=== PATIENT | female | born 1980 | race Caucasian/White ===

== ENCOUNTER 2022-10-01 14:26 | Outpatient (REF) | payer OTHER, SELFPAY ==
[2022-10-01 16:30] LABS: Appearance Urine Clear; Color Urine Yellow; Glucose Urine UA Negative (Negative); Leukocyte Esterase Urine Small (1+) (Negative); Nitrite Urine Negative (Negative); Specific Gravity - Urine 1.025 (1.005-1.025); UMIC TRIGGER UACC YES; Urine Blood Large (3+) (Negative); Urine Ketones Trace mg/dL (Negative); Urine Protein Trace mg/dL (Neg-Trace)
[2022-10-01 16:45] LABS: Bacteria Urine None Seen (None Seen); Hyaline Casts Urine 0-2 /LPF (0-2); RBC Urine >20 /HPF (0-2); UACC Culture Trigger YES
[2022-10-01 17:43] LABS: TSH reflex Free T4 < 0.01 uIU/mL (0.32-4.0)
[2022-10-01 18:42] LABS: Free T4 (Free Thyroxine) 1.47 ng/dL (0.71-1.85)
[2022-10-13 15:14] LABS: Gliadin Deamidated IgA Ab <1.0 U/mL; Gliadin Deamidated IgG Ab <1.0 U/mL; Transglutaminase Ab IgG <1.0 U/mL; Transglutaminase IgA <1.0 U/mL
== END 2022-10-01 14:27 | disposition home or self-care (01) ==
LOC: HO.LAB 14:26
PROVIDERS: PCP Internal Medicine; Visit Provider Nurse Practitioner
DX: R11.2 Nausea with vomiting, unspecified (principal)
CPT/HCPCS: 36415; 81001; 84439; 84443; 86003; 86258; 86364; 87086; 87147; 99202

== ENCOUNTER 2022-10-02 12:39 | Outpatient (REF) | payer OTHER, SELFPAY | END 2022-10-02 12:40 | disposition home or self-care (01) | LOC: HO.LNP 12:39 | PROVIDERS: Internal Medicine; Visit Provider Internal Medicine | DX: R11.2 Nausea with vomiting, unspecified (principal) | CPT/HCPCS: 87338 ==

== ENCOUNTER 2022-10-09 10:19 | Outpatient (REF) | payer OTHER, SELFPAY ==
--- NOTE | ~2022-10-09 | US_ITS ---
EXAMINATION: US ABDOMEN COMPLETE CLINICAL INFORMATION: Nausea with vomiting, unspecified. COMPARISON: None available. TECHNIQUE: Real-time imaging of the abdominal viscera. Technically limited study secondary to body habitus. FINDINGS: PANCREAS: Limited visualization. ABDOMINAL AORTA: The proximal, mid, and distal segments are normal in caliber. INFERIOR VENA CAVA: Visualized portions are normal. LIVER: The liver is normal in size. The liver contour is normal. There is diffuse increased liver parenchymal echogenicity, consistent with hepatic steatosis. No focal hepatic lesion. There is no intrahepatic biliary duct dilatation seen. GALLBLADDER: The gallbladder is physiologically distended without evidence of stones, sludge, polyps, wall thickening or pericholecystic fluid. COMMON BILE DUCT: Normal in caliber measuring 0.3 cm in diameter. RIGHT KIDNEY: No hydronephrosis. No renal calculi or focal parenchymal lesions. The kidney measures 12.7 cm in maximum dimension. LEFT KIDNEY: No hydronephrosis. No renal calculi or focal parenchymal lesions. The kidney measures 11.4 cm in maximum dimension. SPLEEN: The spleen measures 11.8 cm in maximum dimension. FREE FLUID: None. US/US abdomen complete IMPRESSION: Hepatic steatosis.
== END 2022-10-09 10:20 | disposition home or self-care (01) ==
LOC: HO.HMGCX 10:19
PROVIDERS: PCP Internal Medicine; Visit Provider Nurse Practitioner
DX: R11.2 Nausea with vomiting, unspecified (principal); K58.0 Irritable bowel syndrome with diarrhea
CPT/HCPCS: 76700

== ENCOUNTER 2022-10-23 13:37 | Outpatient (AMB) | payer OTHER, SELFPAY ==
--- NOTE | 2022-10-23 13:41 | A.OFFVIS_ITS ---
Intake Vital Signs 10/23/22 13:42 Height 5 ft 6 in Weight 278 lb 5 oz BMI 44.9 BP 121/57 L Blood Pressure Location Lt brachial Position Sitting Intake Visit Reasons: 3 week follow up labs Intake Note: Patient presents to in office visit today in 3 weeks follow up of labs. CC: Pt continues to have nausea and this week states she only vomited once. She report she was having abdominal pain yesterday when bending down. Reports that this morning she woke up and went to have a BM because she was feeling rectal pressure but it took about half an hour to finally have a BM. Lens Examiner Required: No Accompanied by: Self / Same As Patient Allergies nirmatrelvir [From Paxlovid (EUA)] Allergy (Verified 10/23/22 13:43) Unknown ritonavir [From Paxlovid (EUA)] Allergy (Verified 10/23/22 13:43) Unknown adhesive Adverse Reaction (Verified 10/23/22 13:43) Rash Erythromycin Allergy (Uncoded 09/05/22 16:03) Rash Latex Allergy (Uncoded 09/05/22 16:03) Rash Medication List - Last Reconciled 10/23/22 by CHOCO Teran calcium carbonate-simethicone 500-20 mg tabs PO cetirizine 10 mg PO DAILY CPAP (CPAP Machine/Device) As directed ibuprofen 600 mg PO Q8H PRN levothyroxine (Synthroid) 150 mcg PO DAILY omeprazole 20 mg PO BEDTIME ondansetron 4 mg PO Q8H PRN psyllium seed (sugar) (Metamucil (sugar) oral powder) 1 tbsp PO BID sennosides (Senna Laxative) 17.2 mg (2 x 8.6 mg) PO BEDTIME HPI 3 week follow up labs HPI Details Assessment & Plan (1) Nausea and vomiting: ?Code(s): R11.2 - Nausea with vomiting, unspecified ?Plan: Barium swallow 06/2022 [facility] IMPRESSION Small sliding type 1 hiatal hernia. Primary care record seems to indicate the order gastric emptying study but the results of this study was not forwarded to us. The problems started at age 19 when she gained 60 lbs in 3 mos and she was dx'ed with thyroid disease. She was put on synthroid and they had trouble regulating her thyroid. During her first she went into hyperthyroid, then she lost weight and she felt well. During her second (13 yrs ago) she feels that everything has been awry. She then lost 60 lbs 5-6 years ago and her insurance made her be on generic thyroid medicines and she again gained weight. THen she had COVID 2 years ago and rashaun past May and she had a lot of dypepsia and N/V. She has had am nausea since the first COVID episode (she relates that she also had a bad rxn to paxlovid). She relays that she is frustrated that many doctors tell her she is fat and has to lose weight and they are not considering her hormonal difficulties. She vomits almost every morning if she does not put something in her stomach. She will have pains in her LUQ, LLQ and periumbilically that are squeezing that can last from a few minutes to all day intermittently.? This is not r/t her N/V. Her baseline for her bowels was CIC around her menses, she uses benefiber and citrucel but this has been slightly better since COVID. The only diarrhea is right before he menses. About every 3 mos she will be very ill with N/V, body aches, PEREZ etc during her peroid. She says she has PDD and occular migraines. She says she did the GES but she was the never told the results.? It was performed at [facility]. She has had GERD for a long time, many years, and she has always been on either TUMS and omeprazole. Her GERD has been worse recently. She feels this has worsened with losing weight.? She has FHX of GB disease, her mother and sister had choles. The only new medication was Ajovy injection for migraines but then she developed a rash and had to stop it. She also has migraines that coincide with her menses. She has a lot of atypical presentations in her migraines that i nclude occular and numbness that goes up her arms. She has been told in the past she may have abdominal migraines. Her neurologist just retired and she can not get an appt with the new one until January. Her COKE BURNER has told her that the sx are all related to hormone changes. She has never had an EGD. She did have a colonoscopy at age 19 and hated drinking the stuff. Otherwise she tolerated it well. She says there have been diabetes concerns in the past adn I have not been tested for this in a long time. She also complains that I have never had a thorough thyroid work up, saying I see a different doctor every time I go to the [facility]. She complains of random joint swelling but always on my left side. She also c/o heel spurs, knee problems and eye problems on the left side of her body. Her mother and sister have bad GERD and her mother has to have her throat stretched. Her maternal grandmother and paternal grandfather had stomach cancer. She does not think she had an H pylori test. Her dtr has apple allergies. She has not been tested for food allergies recently. She says her biggest annoyance if nausea and brain fog. 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 She wants to teach.? I admits that she is extremely disorganized historian and has trouble really teasing out what is specific to my area of practice. She eats very little at lunch and supper is a slightly larger meal, but if she eats too much it will hurt in her epigastrum, and she has had episodes where she will feel like she would vomit. She equates how she feels to when she was with nausea alternating with food cravings. She recently craved a cheeseburger with Am[place]em island dressing. Did explain her that my role will be to determine if the GI system is contributing to her symptomatology.? Certainly many of her symptoms are disjointed and would point more towards a hormonal/metabolic/neurologic or even psychogenic point of origin.? Since she feels like her GERD is worsened with weight loss and she has a strong family history of gallbladder disease I think an ultrasound is prudent.? An EGD certainly is prudent given her symptoms and her strong family history of stomach cancer along with an H pylori study.? I think some food allergy testing could also shed some light on her symptoms.? I doubt that this has anything to do with her pancreas since she has had normal pancreatic enzymes, also it does not appear that she has a cholestatic picture in her liver function tests that were obtained in June. ROV 3 weeks, get GES study, ordering US, EGD, RAST, panel, Celiac panel. She will be gone most of November. (2) GERD (gastroesophageal reflux disease): ?Comment: Barium swallow 06/2022 [facility] IMPRESSION Small sliding type 1 hiatal hernia. ?Code(s): K21.9 - Gastro-esophageal reflux disease without esophagitis (3) Morbid obesity: ?Code(s): E66.01 - Morbid (severe) obesity due to excess calories (4) Irritable bowel syndrome with diarrhea: ?Code(s): K58.0 - Irritable bowel syndrome with diarrhea (5) Urinary frequency: ?Code(s): R35.0 - Frequency of micturition ? ? ? Orders: Orders Rast Allergen Today K58.0 - Irritable bowel syndrome wit h diarrhea, R11.2 - Nausea with vomi ting, unspecified ? TSH reflex Free T4 Today K58.0 - Irritable bowel syndrome wit h diarrhea, R11.2 - Nausea with vomi ting, unspecified ? Gliadin Ab Panel Today K58.0 - Irritable bowel syndrome wit h diarrhea, R11.2 - Nausea with vomi ting, unspecified ? Transglutaminase I gA Today K58.0 - Irritable bowel syndrome wit h diarrhea, R11.2 - Nausea with vomi ting, unspecified ? Transglutaminase A b IgG Today K58.0 - Irritable bowel syndrome wit h diarrhea, R11.2 - Nausea with vomi ting, unspecified ? EGD with Mcginnis - G I Use Only Today K58.0 - Irritable bowel syndrome wit h diarrhea, R11.2 - Nausea with vomi ting, unspecified ? US abdomen complet e Today K58.0 - Irritable bowel syndrome wit h diarrhea, R11.2 - Nausea with vomi ting, unspecified ? H pylori Ag Stool Today R11.2 - Nausea wit h vomiting, unspec ified ? UA CC w/rflx Micro + Cult Today R35.0 - Frequency of micturition ? LABS: Laboratory Tests 10/01/22 10/01/22 10/02/22 16:14 16:14 10:00 TSH < 0.01 L Free T4 1.47 Stool H. pylori Ag NEGATIVE Tiss Transglutamin IgG <1.0 Tiss Transglutamin IgA <1.0 Anti-Gliadin IgG A b <1.0 Gliadin (Deamidat) IgA <1.0 RAST SHOWS MILD ALLERGY TO COWS MILK ULTRASOUND OF THE ABDOMEN 10/16/22 FINDINGS: PANCREAS: Limited visualization. ABDOMINAL AORTA: The proximal, mid, and distal segments are normal in caliber. INFERIOR VENA CAVA: Visualized portions are normal. LIVER: The liver is normal in size. The liver contour is normal. There is diffuse increased liver parenchymal echogenicity, consistent with hepatic steatosis.? No focal hepatic lesion. There is no intrahepatic biliary duct dilatation seen. GALLBLADDER: The gallbladder is physiologically distended without evidence of stones, sludge, polyps, wall thickening or pericholecystic fluid. COMMON BILE DUCT: Normal in caliber measuring 0.3 cm in diameter. RIGHT KIDNEY: No hydronephrosis. No renal calculi or focal parenchymal lesions. The kidney measures 12.7 cm in maximum dimension. LEFT KIDNEY: No hydronephrosis. No renal calculi or focal parenchymal lesions. The kidney measures 11.4 cm in maximum dimension. SPLEEN: The spleen measures 11.8 cm in maximum dimension. FREE FLUID: None. US/US abdomen complete IMPRESSION: Hepatic steatosis. CORRESPONDENCE Medication Orders cephalexin 500 mg PO BID 14 c aps 0RF 7 days New On 10/08/22 @ 09:19 Harley Fuentes Wrote To [facility] added, Rast results scanned today into PT's chart. On 10/08/22 @ 08:43 Haleigh Novoa Wrote To Harley Fuentes 1. please call pt and find out her pharmacy as she has a UTI and I neecd to send abx 2. Please get the results of rast and post to chart. On 10/02/22 @ 10:53 Haleigh Novoa Wrote To [facility] Patient having her menses at the time of the urine sample 10/01/22-[address]: Taylor Parnell ORDERED: [facility] w Micros QUERIES: Source: Urine, Clean Catch Test Result Flag Reference Site Ur Color Yellow Ur Appear Clear PH 6.0 5.0-9.0 Ur Glu Negative Negative mg/dL Urine Blood Large (3+) H Negative Spec Hurley Ur 1.025 1.005-1.025 Urine Protein Trace Neg-Trace mg/dL Urine Ketones Trace Negative mg/dL Ur Nitrite Negative Negative Ur Aroldo Esterase Small (1+) H Negative Ur RBC >20 H 0-2 /HPF Ur WBC 11-20 H 0-5 /HPF Ur Squam Epi 3-5 0-2 /HPF Ur Bact None Seen None Seen Ur Hyaline Picker Box Operator 0-2 0-2 /LPF Urine Culture Final 10/03/22-1153 Report Result > 100,000 cfu/ml Mixed bacterial sophia characteristic of urogenital contamination. Organism 1 Strep agalactiae (Grp B) Quant < 10,000 cfu/mL Susc N/A Susceptibility not routinely performed on this isolate. EGD BIOPSY TODAY'S VISIT She received the keflex and took all but the last 3 days r/t work and sleep schedule. She DID feel better in terms of her stomach I was actually hungry again. She still has urinary frequency, will retest. She is now having CIC and has had one episode of severe pain above the umbilicus, at times lower but this is more of a bloated feeling. It radiates around her ribs and to her low back. She uses mag citrate (quite harsh), and has used only fibers and metamucil - radiological technologist with pill laxatives. Will start a trial of senna. She has a lot of gas, never been counselled about things like simethicone, probiotic or digestive enzymes. Going forward we can consider treating for bacterial overgrowth syndrome or even adding Creon to the mix depending on how she responds once we get her bowels moving more normally. She remains concerned given her family history of severe gallbladder disease so despite the negative ultrasound I will order a HIDA scan to try to tease out this as a contributing or non contributing factor. Return office visit in 2 weeks. [facility] Medical History (Updated 10/23/22 @ 14:13 by CHOCO Teran) History of endometrial biopsy Surgical History H/O colonoscopy H/O hernia repair History of section History of tubal ligation Social History (Updated 10/01/22 @ 14:52 by SUSANNAH Conklin) Alcohol intake: current Alcohol intake frequency: holidays/special occasions only Patient Tobacco Use Status: Never used Tobacco Review of Systems Const Denies fatigue, Denies fever(s), Denies night sweats, Reports poor appetite and Denies weight loss Eyes Details: glasses Reports requires corrective lenses ENT Reports Normal hearing present, Denies dental pain, Denies dysphagia, Denies hearing loss, Denies mouth pain, Denies odynophagia, Denies throat swelling, Denies tongue swelling and Reports other (Dentition adequate) Card Reports no additional complaints Resp Reports no additional complaints GI Denies abdominal pain, Denies melena, Reports bloating, Denies hematochezia, Reports constipation, Reports GI cramping, Denies dysphagia, Denies excessive flatus, Denies early satiety, Reports heartburn, Reports diarrhea, Reports nausea, Denies odynophagia, Denies vomiting and Denies hematemesis Details: Urinary frequency Musc Reports back pain Skin/Breast Denies pruritus, Denies lesions, Denies rash and Denies jaundice Neuro Reports Normal hearing present and Denies Abnormal speech present Endo Denies fatigue Aller/Immun Denies throat swelling and Denies tongue swelling Physical Exam Vital Signs: Last Vital Signs BP 121/57 L 10/23/22 13:42 BMI result Body Mass Index 44.9 Const General: cooperative, no acute distress, well developed and well groomed Nutritional Appearance: well nourished and obese Orientation/consciousness: oriented to person, oriented to place and oriented to time Limitations: No language barrier HEENT Head: Yes normocephalic and Yes atraumatic Eyes General: appearance normal, both eyes and all related structures Pupils: Equal, round and reactive pupils present Neck Neck: Yes normal visual inspection and Yes no lymphadenopathy Thyroid: Thyroid normal Resp Effort & Inspection: normal respiratory effort and able to speak in complete sentences Auscultation: clear to auscultation bilaterally Cardio Rate: regular rate Rhythm: regular rhythm Heart sounds: Normal, physiologic split S2 sound present Peripheral pulses: radial pulses present and posterior tibial pulses present GI Inspection: No distended, No Abdominal panniculus present and Yes obesity Palpation (GI): Soft to palpation, nontender, no guarding, not rigid and No hepatosplenomegaly present Percussion: Yes normal to percussion Auscultation: normal bowel sounds Rectal Exam - Female: deferred Skin General skin exam: no rashes or lesions noted, turgor normal, skin not dry, no jaundice, No spider nevi and no striae Rashes: no rashes Nails: normal Neuro General: oriented to person, oriented to place and oriented to time Cranial nerves: Yes Equal, round and reactive pupils present and Yes Normal hearing present Speech: No Abnormal speech present Extrem General: Yes normal to inspection, No clubbing, No cyanosis and No edema Psych Appearance: grossly normal and well kempt Mental Status: mental status grossly normal Speech and movement: Normal speech and movement present Affect: normal affect Attitude: cooperative Thought process: Normal thought process present and not confabulating Thought content: Normal thought content present Insight: Limited insight present (Psych) Judgement: Limited judgement present (Psych) Results Reviewed Results Reviewed: 10/01/22 10/01/22 10/02/22 16:14 16:14 10:00 TSH < 0.01 L Free T4 1.47 Stool H. pylori Ag NEGATIVE Tiss Transglutamin IgG <1.0 Tiss Transglutamin IgA <1.0 Anti-Gliadin IgG Ab <1.0 Gliadin (Deamidat) IgA <1.0 RAST SHOWS MILD ALLERGY TO COWS MILK ULTRASOUND OF THE ABDOMEN 10/16/22 FINDINGS: PANCREAS: Limited visualization. ABDOMINAL AORTA: The proximal, mid, and distal segments are normal in caliber. INFERIOR VENA CAVA: Visualized portions are normal. LIVER: The liver is normal in size. The liver contour is normal. There is diffuse increased liver parenchymal echogenicity, consistent with hepatic steatosis.? No focal hepatic lesion. There is no intrahepatic biliary duct dilatation seen. GALLBLADDER: The gallbladder is physiologically distended without evidence of stones, sludge, polyps, wall thickening or pericholecystic fluid. COMMON BILE DUCT: Normal in caliber measuring 0.3 cm in diameter. RIGHT KIDNEY: No hydronephrosis. No renal calculi or focal parenchymal lesions. The kidney measures 12.7 cm in maximum dimension. LEFT KIDNEY: No hydronephrosis. No renal calculi or focal parenchymal lesions. The kidney measures 11.4 cm in maximum dimension. SPLEEN: The spleen measures 11.8 cm in maximum dimension. FREE FLUID: None. US/US abdomen complete IMPRESSION: Hepatic steatosis. CORRESPONDENCE Medication Orders cephalexin 500 mg PO BID 14 caps 0RF 7 days New On 10/08/22 @ 09:19 Harley Fuentes Wrote To [facility] added, Rast results scanned today into PT's chart. On 10/08/22 @ 08:43 Haleigh Novoa Wrote To Harley Fuentes 1. please call pt and find out her pharmacy as she has a UTI and I neecd to send abx 2. Please get the results of rast and post to chart. On 10/02/22 @ 10:53 Haleigh Novoa Wrote To [facility] Patient having her menses at the time of the urine sample 10/01/22-[address]: Taylor Parnell ORDERED: [facility] w Micros QUERIES: Source: Urine, Clean Catch Test Result Flag Reference Site Ur Color Yellow Ur Appear Clear PH 6.0 5.0-9.0 Ur Glu Negative Negative mg/dL Urine Blood Large (3+) H Negative Spec Hurley Ur 1.025 1.005-1.025 Urine Protein Trace Neg-Trace mg/dL Urine Ketones Trace Negative mg/dL Ur Nitrite Negative Negative Ur Aroldo Esterase Small (1+) H Negative Ur RBC >20 H 0-2 /HPF Ur WBC 11-20 H 0-5 /HPF Ur Squam Epi 3-5 0-2 /HPF Ur Bact None Seen None Seen Ur Hyaline Picker Box Operator 0-2 0-2 /LPF Urine Culture Final 10/03/22-1153 Report Result > 100,000 cfu/ml Mixed bacterial sophia characteristic of urogenital contamination. Organism 1 Strep agalactiae (Grp B) Quant < 10,000 cfu/mL Susc N/A Susceptibility not routinely performed on this isolate. Assessment & Plan Assessment & Plan (1) Irritable bowel syndrome with both constipation and diarrhea: Code(s): K58.2 - Mixed irritable bowel syndrome Plan: She received the keflex and took all but the last 3 days r/t work and sleep schedule. She DID feel better in terms of her stomach I was actually hungry again. She still has urinary frequency, will retest. She is now having CIC and has had one episode of severe pain above the umbilicus, at times lower but this is more of a bloated feeling. It radiates around her ribs and to her low back. She uses mag citrate (quite harsh), and has used only fibers and metamucil - radiological technologist with pill laxatives. Will start a trial of senna. She has a lot of gas, never been counselled about things like simethicone, probiotic or digestive enzymes. Going forward we can consider treating for bacterial overgrowth syndrome or even adding Creon to the mix depending on how she responds once we get her bowels moving more normally. She remains concerned given her family history of severe gallbladder disease so despite the negative ultrasound I will order a HIDA scan to try to tease out this as a contributing or non contributing factor. Return office visit in 2 weeks. (2) UTI (urinary tract infection): Code(s): N39.0 - Urinary tract infection, site not specified (3) GERD (gastroesophageal reflux disease): Comment: Barium swallow 06/2022 [facility] IMPRESSION Small sliding type 1 hiatal hernia. Code(s): K21.9 - Gastro-esophageal reflux disease without esophagitis (4) Nausea and vomiting: Code(s): R11.2 - Nausea with vomiting, unspecified Orders: Orders NM hepatobiliary w pharm Today R11.2 - Nausea with vomiting, unspecified UA CC w/rflx Micro + Cult Today N39.0 - Urinary tract infection, site not specified Medications: New sennosides (Senna Laxative) 17.2 mg (2 x 8.6 mg) PO BEDTIME 60 tabs 6RF K58.2 - Mixed irritable bowel syndrome simethicone after meals 180 mg PO .tidac 30 days 90 caps 3RF Coding Level of Care Code Est Pt Level 4 (64018) Diagnoses Irritable bowel syndrome with both constipation and diarrhea K58.2 UTI (urinary tract infection) N39.0 GERD (gastroesophageal reflux disease) K21.9 Nausea and vomiting R11.2
[2022-10-23 13:42] VITALS: BP 121/57; BMI 44.9
== END 2022-10-23 14:26 | disposition home or self-care (01) ==
PROVIDERS: PCP Internal Medicine; Visit Provider Nurse Practitioner
DX: K58.2 Mixed irritable bowel syndrome (principal); N39.0 Urinary tract infection, site not specified; K21.9 Gastro-esophageal reflux disease without esophagitis; R11.2 Nausea with vomiting, unspecified
CPT/HCPCS: 99214

== ENCOUNTER 2022-10-23 13:37 | Outpatient (REF) | payer OTHER, SELFPAY ==
[2022-10-23 17:04] LABS: Appearance Urine Cloudy; Color Urine Dark Yellow; Glucose Urine UA Negative (Negative); Leukocyte Esterase Urine Negative (Negative); Nitrite Urine Negative (Negative); PH 5.5 (5.0-9.0); Specific Gravity - Urine >= 1.030 (1.005-1.025); Urine Blood Negative (Negative); Urine Ketones Trace mg/dL (Negative); Urine Protein Trace mg/dL (Neg-Trace)
== END 2022-10-23 13:38 | disposition home or self-care (01) ==
LOC: HO.LAB 13:37
PROVIDERS: PCP Internal Medicine; Visit Provider Nurse Practitioner
DX: N39.0 Urinary tract infection, site not specified (principal); K58.2 Mixed irritable bowel syndrome; K21.9 Gastro-esophageal reflux disease without esophagitis; R11.2 Nausea with vomiting, unspecified
CPT/HCPCS: 81003; 99212

== ENCOUNTER 2022-11-07 12:16 | Outpatient (AMB) | payer OTHER, SELFPAY ==
--- NOTE | 2022-11-07 12:18 | MHC.OFFVIS ---
Intake Vital Signs 11/07/22 12:27 Height 5 ft 6 in Weight 276 lb 14.409 oz BMI 44.7 BP 131/61 Blood Pressure Location Lt brachial Position Sitting Pulse 79 Intake Visit Reasons: 3 week follow up Intake Note: Britt presents in office as a est.patient for a 3week f/u for f/u PT CC: pt reports having GERD, bloating pt denies any other GI Issues Fertilizer Applicator Required: No Accompanied by: Self / Same As Patient Allergies nirmatrelvir [From Paxlovid (EUA)] Allergy (Verified 11/07/22 12:29) Unknown ritonavir [From Paxlovid (EUA)] Allergy (Verified 11/07/22 12:29) Unknown adhesive Adverse Reaction (Verified 11/07/22 12:29) Rash Erythromycin Allergy (Uncoded 11/07/22 12:29) Rash Latex Allergy (Uncoded 11/07/22 12:29) Rash HPI 3 week follow up HPI Details Assessment & Plan (1) Irritable bowel syndrome with both constipation and diarrhea: ?Code(s): K58.2 - Mixed irritable bowel syndrome ?Plan: She received the keflex and took all but the last 3 days r/t work and sleep schedule. She DID feel better in terms of her stomach I was actually hungry again. She still has urinary frequency, will retest. She is now having CIC and has had one episode of severe pain above the umbilicus, at times lower but this is more of a bloated feeling. It radiates around her ribs and to her low back. 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 Will start a trial of senna. She has a lot of gas, never been counselled about things like simethicone, probiotic or digestive enzymes.? Going forward we can consider treating for bacterial overgrowth syndrome or even adding Creon to the mix depending on how she responds once we get her bowels moving more normally. She remains concerned given her family history of severe gallbladder disease so despite the negative ultrasound I will order a HIDA scan to try to tease out this as a contributing or non contributing factor. Return office visit in 2 weeks. (2) UTI (urinary tract infection): ?Code(s): N39.0 - Urinary tract infection, site not specified (3) GERD (gastroesophageal reflux disease): ?Comment: Barium swallow 06/2022 [facility] IMPRESSION Small sliding type 1 hiatal hernia. ?Code(s): K21.9 - Gastro-esophageal reflux disease without esophagitis (4) Nausea and vomiting: ?Code(s): R11.2 - Nausea with vomiting, unspecified ? ? ? Orders: Orders NM hepatobiliary w pharm Today R11.2 - Nausea wit h vomiting, unspec ified ? UA CC w/rflx Micro + Cult Today N39.0 - Urinary tr act infection, sit e not specified ? Medications: New sennosides (Senna Laxative) 17.2 mg (2 x 8.6 m g) PO BEDTIME 60 t abs 6RF K58.2 - Mixed irri table bowel syndro me ? simethicone ?? aft er meals 180 mg? PO .tidac 30 days 90 caps 3R F ? LABS: 10/01/22-[address]: Jana Galan se ORDERED: [facility] w Micros QUERIES: Sourc e: Urine, Clean Ca tch Test Result Flag Referen ce Sit e Ur Color Yellow Ur Appear Cl ear PH 6.0 5.0-9.0 Ur G adin Negativ e Negative mg/dL Urine Blood Large (3+) H Negative Spec Gra vity Ur 1.025 1.005-1.025 Urine Prot ein Trace Ne g-Trace mg/dL Urine Ketone s Trace Nega tive mg/dL Ur Nitrite Negative Negati ve Ur Aroldo Esterase Sm all (1+) H Negative Ur RBC > 20 H 0-2 /HPF Ur WBC 11-2 0 H 0-5 /HPF Ur S rasheeda Epi 3-5 0-2 /HPF Ur Quentin t None Seen None Seen Ur Hyali ne Optician Apprentice 0-2 0-2 /LPF 10/03/22-1153 Report Result > 100,000 cfu/ml Mixed bacterial sophia characteristic of urogenital contamination. Organism 1 Strep agalactiae (Grp B) Quant < 10,000 cfu/mL Susc N/A Susceptibility not routinely performed on this isolate. 10/23/22 Collection Derek e: 1446 Source: Urin e, Clean Catch Test Result Flag Referen ce Sit e Ur Color Saw k Yellow Ur Appear Cl oudy PH 5.5 5.0-9.0 Ur G adin Negativ e Negative mg/dL Urine Blood Negative Negative Spec Gra vity Ur >= 1.030 H 1.005-1.025 Urine Prot ein Trace Ne g-Trace mg/dL Urine Ketone s Trace Nega tive mg/dL Ur Nitrite Negative Negati ve Ur Aroldo Esterase N egative HIDA SCAN Not yet obtained EGD scheduled for 12/16/2022 was with Ras which I cancelled. TODAY'S VISIT Her bowels have been moving well with the senna, but she has to take it in the morning because she takes her levothyroxine at bedtime. She had to move the levothyroxine r/t nausea when she took it in the am. When she takes the senna, along with the simethicone, she will have worsening GERD and nausea. Clearly, this not the best medicine to promote a normal lifestyle for her. Her BM's have been formed and large, only 1 episode diarrhea. (? if cic more dominant). I will start a trial of LInzess 72mcg as this is intended to be used in the morning and will more clearly address some of the complaint she has had of cramping and pain associated with her irritable bowel. She also had severe pain in right colon in 2 isolated incidents, she thought it may be gas but was not. She fell asleep on the toilet. She continues to have a lot of gas. Again, we may need to consider treating for small-bowel bacterial overgrowth or adding Creon going forward depending on her response to promoting good normal bowel motility. She also was started on herpes medication that may be increasing the nausea. She also has pain in the inner labia, hurts wit urination, ? herpers vs marian. Will treat with monistat cream and if not resolving refer to ADMISSIONS CLINICIAN. I did just tx her with keflex for strep in urine, so this could be a causative reason for a vaginal yeast infection. Return office visit when she is back from her trip. She is going to visit family members out of state. [facility] Medical History History of endometrial biopsy Surgical History H/O colonoscopy H/O hernia repair History of section History of tubal ligation Social History Alcohol intake: current Alcohol intake frequency: holidays/special occasions only Patient Tobacco Use Status: Never used Tobacco Review of Systems Const Denies fatigue, Denies fever(s), Denies night sweats, Denies poor appetite and Denies weight loss Eyes Details: glasses Reports requires corrective lenses ENT Reports Normal hearing present, Denies dental pain, Denies dysphagia, Denies hearing loss, Denies mouth pain, Denies odynophagia, Denies throat swelling, Denies tongue swelling and Reports other (Dentition adequate) Card Reports no additional complaints Resp Reports no additional complaints GI Reports abdominal pain, Denies melena, Reports bloating, Denies hematochezia, Reports constipation, Denies GI cramping, Denies dysphagia, Denies excessive flatus, Denies early satiety, Reports heartburn, Denies diarrhea, Reports nausea, Denies odynophagia, Denies vomiting and Denies hematemesis Reports vaginal discharge Skin/Breast Denies pruritus, Denies lesions, Denies rash and Denies jaundice Neuro Reports Normal hearing present and Denies Abnormal speech present Endo Denies fatigue Aller/Immun Denies throat swelling and Denies tongue swelling Physical Exam Vital Signs: Last Vital Signs Pulse 79 11/07/22 12:27 BP 131/61 11/07/22 12:27 BMI result Body Mass Index 44.7 Const General: cooperative, no acute distress, well developed, tired appearing and well groomed Nutritional Appearance: well nourished and obese morbidly obese Orientation/consciousness: oriented to person, oriented to place and oriented to time Limitations: No language barrier HEENT Head: Yes normocephalic and Yes atraumatic Eyes General: appearance normal, both eyes and all related structures Pupils: Equal, round and reactive pupils present Neck Neck: Yes normal visual inspection and Yes no lymphadenopathy Thyroid: Thyroid normal Resp Effort & Inspection: normal respiratory effort and able to speak in complete sentences Auscultation: clear to auscultation bilaterally Cardio Rate: regular rate Rhythm: regular rhythm Heart sounds: Normal, physiologic split S2 sound present Peripheral pulses: radial pulses present and posterior tibial pulses present GI Inspection: No distended, Yes Abdominal panniculus present and Yes obesity Palpation (GI): Soft to palpation, nontender, no guarding, not rigid, No hepatosplenomegaly present and Hepatosplenomegaly present Percussion: Yes normal to percussion Auscultation: normal bowel sounds Rectal Exam - Female: deferred Skin General skin exam: no rashes or lesions noted, turgor normal, skin not dry, no jaundice, No spider nevi and no striae Rashes: no rashes Nails: normal Neuro General: oriented to person, oriented to place and oriented to time Cranial nerves: Yes Equal, round and reactive pupils present and Yes Normal hearing present Speech: No Abnormal speech present Extrem General: Yes normal to inspection, No clubbing, No cyanosis and No edema Psych Appearance: grossly normal and well kempt Mental Status: mental status grossly normal Speech and movement: Normal speech and movement present Affect: normal affect Attitude: cooperative Thought process: Normal thought process present and not confabulating Thought content: Normal thought content present Insight: Limited insight present (Psych) Judgement: Limited judgement present (Psych) Results Reviewed Results Reviewed: 10/01/22-[address]: Taylor Parnell ORDERED: [facility] w Micros QUERIES: Source: Urine, Clean Catch Test Result Flag Reference Site Ur Color Yellow Ur Appear Clear PH 6.0 5.0-9.0 Ur Glu Negative Negative mg/dL Urine Blood Large (3+) H Negative Spec [place] Ur 1.025 1.005-1.025 Urine Protein Trace Neg-Trace mg/dL Urine Ketones Trace Negative mg/dL Ur Nitrite Negative Negative Ur Aroldo Esterase Small (1+) H Negative Ur RBC >20 H 0-2 /HPF Ur WBC 11-20 H 0-5 /HPF Ur Squam Epi 3-5 0-2 /HPF Ur Bact None Seen None Seen Ur Hyaline Optician Apprentice 0-2 0-2 /LPF 10/03/22-1153 Report Result > 100,000 cfu/ml Mixed bacterial sophia characteristic of urogenital contamination. Organism 1 Strep agalactiae (Grp B) Quant < 10,000 cfu/mL [facility] [place] Susceptibility not routinely performed on this isolate. 10/23/22 Collection Time: 1446 Source: Urine, Clean Catch Test Result Flag Reference Site Ur Color Dark Yellow Ur Appear Cloudy PH 5.5 5.0-9.0 Ur Glu Negative Negative mg/dL Urine Blood Negative Negative Spec [place] Ur >= 1.030 H 1.005-1.025 Urine Protein Trace Neg-Trace mg/dL Urine Ketones Trace Negative mg/dL Ur Nitrite Negative Negative Ur Aroldo Esterase Negative Assessment & Plan Assessment & Plan (1) Chronic idiopathic constipation: Code(s): K59.04 - Chronic idiopathic constipation Plan: HIDA SCAN Not yet obtained EGD scheduled for 12/16/2022 was with Mcginnis which I cancelled. TODAY'S VISIT Her bowels have been moving well with the senna, but she has to take it in the morning because she takes her levothyroxine at bedtime. She had to move the levothyroxine r/t nausea when she took it in the am. When she takes the senna, along with the simethicone, she will have worsening GERD and nausea. Clearly, this not the best medicine to promote a normal lifestyle for her. Her BM's have been formed and large, only 1 episode diarrhea. (? if cic more dominant). I will start a trial of LInzess 72mcg as this is intended to be used in the morning and will more clearly address some of the complaint she has had of cramping and pain associated with her irritable bowel. She also had severe pain in right colon in 2 isolated incidents, she thought it may be gas but was not. She fell asleep on the toilet. She continues to have a lot of gas. Again, we may need to consider treating for small-bowel bacterial overgrowth or adding Creon going forward depending on her response to promoting good normal bowel motility. She also was started on herpes medication that may be increasing the nausea. She also has pain in the inner labia, hurts wit urination, ? herpers vs marian. Will treat with monistat cream and if not resolving refer to ADMISSIONS CLINICIAN. I did just tx her with keflex for strep in urine, so this could be a causative reason for a vaginal yeast infection. Return office visit when she is back from her trip. She is going to visit family members out of state. (2) GERD (gastroesophageal reflux disease): Comment: Barium swallow 06/2022 [facility] IMPRESSION Small sliding type 1 hiatal hernia. Code(s): K21.9 - Gastro-esophageal reflux disease without esophagitis (3) Vaginal marina: Code(s): B37.31 - Acute candidiasis of vulva and vagina Medications: New linaclotide (Linzess) 72 mcg PO QAM 30 caps 6RF K59.04 - Chronic idiopathic constipation famotidine (Pepcid) 40 mg PO BEDTIME 30 tabs 3RF K21.9 - Gastro-esophageal reflux disease without esophagitis miconazole nitrate 2% (Monistat 7) 1 appful vaginal BEDTIME 7 days 45 grams 0RF B37.31 - Acute candidiasis of vulva and vagina Discontinued sennosides (Senna Laxative) Discontinued Reason: Doctor's Order 17.2 mg (2 x 8.6 mg) PO BEDTIME 60 tabs 6RF K58.2 - Mixed irritable bowel syndrome Coding Level of Care Code Est Pt Level 3 (93484) Diagnoses Chronic idiopathic constipation K59.04 GERD (gastroesophageal reflux disease) K21.9 Vaginal marian B37.31
[2022-11-07 12:27] VITALS: BP 131/61; PULSE 79; BMI 44.7
== END 2022-11-07 13:06 | disposition home or self-care (01) ==
PROVIDERS: PCP Internal Medicine; Visit Provider Nurse Practitioner
DX: K59.04 Chronic idiopathic constipation (principal); K21.9 Gastro-esophageal reflux disease without esophagitis; B37.31 Acute candidiasis of vulva and vagina
CPT/HCPCS: 99213

== ENCOUNTER → 2022-11-07 12:16 | Outpatient (BNVA) | payer OTHER, SELFPAY | PROVIDERS: PCP Internal Medicine; Visit Provider Nurse Practitioner | DX: K59.04 Chronic idiopathic constipation (principal); K21.9 Gastro-esophageal reflux disease without esophagitis; B37.31 Acute candidiasis of vulva and vagina | CPT/HCPCS: 99212 ==

== ENCOUNTER → 2022-12-11 07:50 | Outpatient (REF) | payer OTHER, SELFPAY ==
--- NOTE | ~2022-12-11 | NM_ITS ---
EXAMINATION: BILIARY TRACT IMAGING STUDY WITH CCK CLINICAL INFORMATION: Nausea with vomiting, unspecified.. COMPARISON: Abdominal ultrasound done on 10/09/2022.. TECHNIQUE: Serial gamma scintillation camera images were obtained over the abdomen for a total observation period of 60 minutes following the intravenous administration of 5 mCi Tc-99m mebrofenin. The radiotracer was injected through right antecubital superficial vein without complications. FINDINGS: There is good concentration of activity in the liver by 5 minutes post injection. Biliary activity is visualized by 5 minutes. The gallbladder is well visualized by 15 minutes. Small bowel is well visualized by 65 minutes. At 60 minutes post radiopharmaceutical injection, a 30-minute infusion of 2.5 micrograms Sincalide was then begun and an additional 30 minutes of images were obtained. There is good emptying of the gallbladder. By the end of the study there is good clearance of activity from the liver and visualization of diffuse small bowel activity. The calculated gallbladder ejection fraction is 89% (normal gallbladder ejection fraction is greater than 35%). NM/NM hepatobiliary w pharm IMPRESSION: Visualization of the gallbladder is evidence of a patent cystic duct and strong evidence against the diagnosis of acute cholecystitis. The common bile duct is patent. Gallbladder emptying and ejection fraction are normal. Liver function appears normal.
== END ==
LOC: HO.NUCMED 07:50
PROVIDERS: PCP Internal Medicine; Visit Provider Nurse Practitioner
DX: R11.2 Nausea with vomiting, unspecified (principal)
CPT/HCPCS: 78227; A9537; J2805

== ENCOUNTER 2022-12-16 08:50 | Day surgery (SDC) | payer OTHER, SELFPAY ==
[2022-12-12 12:16] VITALS: BMI 44.7
--- NOTE | 2022-12-15 09:21 | HO.ANESPROP2 ---
Documented by User: Rosetta Weiss NP 12/15/22 09:21 HPI - Anesthesia Eval Consult details Narrative: 42yo F for Upper Endoscopy PMFSH Active Problems Active Problems: All Active Problems (Updated 11/07/22 @ 13:00 by CHOCO Teran) Vaginal marian (Acute) Chronic idiopathic constipation (Acute) Irritable bowel syndrome with both constipation and diarrhea (Acute) UTI (urinary tract infection) (Acute) PMDD (premenstrual dysphoric disorder) (Acute) Microscopic hematuria (Acute) Urinary frequency (Acute) Nausea and vomiting (Acute) Fibromyalgia (Acute) Insomnia (Acute) Depression with anxiety (Acute) GERD (gastroesophageal reflux disease) (Acute) Glaucoma (Acute) Migraines (Acute) Hypothyroid (Acute) Elsy's thyroiditis (Acute) Morbid obesity (Acute) Past Medical History Medical History GERD (gastroesophageal reflux disease) Hypothyroid History of endometrial biopsy Surgical History Surgical History H/O colonoscopy H/O hernia repair History of tubal ligation History of section Social History Social History Alcohol intake: current Alcohol intake frequency: holidays/special occasions only Patient Tobacco Use Status: Never used Tobacco Meds Allergies Allergy/AdvReac Type Severity Reaction Status Date / Time nirmatrelvir Allergy Unknown Verified 11/07/22 12:29 [From Paxlovid (EUA)] ritonavir Allergy Unknown Verified 11/07/22 12:29 [From Paxlovid (EUA)] adhesive AdvReac Rash Verified 11/07/22 12:29 Erythromycin Allergy Rash Uncoded 11/07/22 12:29 Latex Allergy Rash Uncoded 11/07/22 12:29 Home Medications Medication Instructions Recorded Confirmed Last Taken Type CPAP (CPAP Machine/Device) 10/01/22 10/23/22 Unknown History calcium carbonate 500 tab PO 10/01/22 10/23/22 Unknown History mg-simethicone 20 mg chewable tablet cetirizine 10 mg tablet 10 mg PO DAILY 10/01/22 10/23/22 Unknown History ibuprofen 600 mg tablet 600 mg PO Q8H PRN 10/01/22 10/23/22 Unknown History omeprazole 20 mg capsule,delayed 20 mg PO BEDTIME 10/01/22 10/23/22 Unknown History release ondansetron 4 mg disintegrating 4 mg PO Q8H PRN 10/01/22 10/23/22 Unknown History tablet psyllium seed (sugar) oral powder 1 tbsp PO BID 10/23/22 10/23/22 Unknown History (Metamucil (sugar) oral powder) levothyroxine 125 mcg tablet 125 mcg PO DAILY 12/16/22 12/16/22 Unknown History (Synthroid) Exam Exam Date and Time: December 15, 2022920 Height,Weight and Vital Signs: Height 5 ft 6 in Weight 125.588 kg Assessment and Plan Assessment Anesthesia Assessment: Chart Reviewed Documented by User: Latisha Harris MD 12/16/22 09:48 PMF Active Problems Active Problems: All Active Problems (Updated 12/16/22 @ 08:57 by Latisha Harris MD) Vaginal marian (Acute) Chronic idiopathic constipation (Acute) Irritable bowel syndrome with both constipation and diarrhea (Acute) UTI (urinary tract infection) (Acute) PMDD (premenstrual dysphoric disorder) (Acute) Microscopic hematuria (Acute) Urinary frequency (Acute) Nausea and vomiting (Acute) Fibromyalgia (Acute) Insomnia (Acute) Depression with anxiety (Acute) GERD (gastroesophageal reflux disease) (Acute) Glaucoma (Acute) Migraines (Acute) Hypothyroid (Acute) Elsy's thyroiditis (Acute) Morbid obesity (Acute) SVEN. Uses CPAP machine Abnormal eKG on monitor-h/o palpitations. Stress test in the past( in her 30s). Does not recall anything said about results of tests or any therapy instituted Past Medical History Medical History GERD (gastroesophageal reflux disease) Hypothyroid History of endometrial biopsy Family History Family history of problems with anesthesia: No Surgical History Surgical History H/O colonoscopy H/O hernia repair History of tubal ligation History of section History of Problems with Anesthesia: No Social History Social History Alcohol intake: current Alcohol intake frequency: holidays/special occasions only Patient Tobacco Use Status: Never used Tobacco Meds Allergies Allergy/AdvReac Type Severity Reaction Status Date / Time nirmatrelvir Allergy Unknown Verified 11/07/22 12:29 [From Paxlovid (EUA)] ritonavir Allergy Unknown Verified 11/07/22 12:29 [From Paxlovid (EUA)] adhesive AdvReac Rash Verified 11/07/22 12:29 Erythromycin Allergy Rash Uncoded 11/07/22 12:29 Latex Allergy Rash Uncoded 11/07/22 12:29 Home Medications Medication Instructions Recorded Confirmed Last Taken Type CPAP (CPAP Machine/Device) 10/01/22 10/23/22 Unknown History calcium carbonate 500 tab PO 10/01/22 10/23/22 Unknown History mg-simethicone 20 mg chewable tablet cetirizine 10 mg tablet 10 mg PO DAILY 10/01/22 10/23/22 Unknown History ibuprofen 600 mg tablet 600 mg PO Q8H PRN 10/01/22 10/23/22 Unknown History omeprazole 20 mg capsule,delayed 20 mg PO BEDTIME 10/01/22 10/23/22 Unknown History release ondansetron 4 mg disintegrating 4 mg PO Q8H PRN 10/01/22 10/23/22 Unknown History tablet psyllium seed (sugar) oral powder 1 tbsp PO BID 10/23/22 10/23/22 Unknown History (Metamucil (sugar) oral powder) levothyroxine 125 mcg tablet 125 mcg PO DAILY 12/16/22 12/16/22 Unknown History (Synthroid) Exam Height,Weight and Vital Signs: Height 5 ft 6 in Weight 125.588 kg Vital Signs Temp Pulse Resp BP Pulse Ox O2 Del Method 12/16/22 09:27 96.8 F 74 18 111/51 L 96 Room Air Narrative Narrative: 12/16/22: 12 lead EKG- NSR 82. Possible LAE. RBBB Airway Mallampati Class: II TM Dist: >3cm Neck ROM: Full Loose/Missing/Broken Teeth: No (Retainer behind lower teeth. Denies broken, loose, missing teeth) Heart: RRR Lungs: CTAB Assessment and Plan Assessment Anesthesia Assessment: Anesthesia Plan Discussed Final Anesthetic Review Family History of Problems with Anesthesia: No History of Problems with Anesthesia: No NPO: Yes ASA Class: III Final Preanesthetic Review: No Changes in Pt Med Stat, Meds/Allgs Chart Reviewed, Consent Obtained/Reviewed and Anes Risks/Benef Reviewed Patient Risk: Intermediate Procedure Risk: Low Assessment/Block/Sedation in SS: Assess/Block/Sedation-SS Anesthetic Plan Anesthetic Plan: MAC: Disposition: Standard PACU
--- NOTE | 2022-12-16 | ECG_ITS ---
Test Reason : preop palps bbb Blood Pressure : / mmHG Vent. Rate : 082 BPM Atrial Rate : 082 BPM P-R Int : 140 ms QRS Dur : 130 ms QT Int : 380 ms P-R-T Axes : 027 -02 014 degrees QTc Int : 443 ms Normal sinus rhythm Possible Left atrial enlargement Right bundle branch block Abnormal ECG No previous ECGs available Referred By: Latisha Harris Electronically Signed By:MCKENZIE ALVA
[2022-12-16 09:03] VITALS: BMI 44.4
[2022-12-16 09:27] VITALS: BP 111/51; PULSE 74; RESP 18; TEMP 36; O2SAT 96
--- NOTE | 2022-12-16 09:42 | P.HPSUR_ITS ---
Pre-Procedural Eval Section A Date of Service: 12/16/22 Section B Chief Complaint: GERD, Nausea with vomiting, unspecified Details of Present Illness: epigastric pain and fullness Relevant Family History (Specify if Yes): No Relevant Social History: None Present Medications: see Short Stay Collaborative assessment Medical History: Significant History (GERD (gastroesophageal reflux disease) Hypothyroid History of endometrial biopsy) History of Previous Operations: Relevant previous surgery/procedure and date(s) (H/O colonoscopy H/O hernia repair History of tubal ligation History of section) Allergies: Allergies Allergy/AdvReac Type Severity Reaction Status Date / Time nirmatrelvir Allergy Unknown Verified 11/07/22 12:29 [From Paxlovid (EUA)] ritonavir Allergy Unknown Verified 11/07/22 12:29 [From Paxlovid (EUA)] adhesive AdvReac Rash Verified 11/07/22 12:29 Erythromycin Allergy Rash Uncoded 11/07/22 12:29 Latex Allergy Rash Uncoded 11/07/22 12:29 Review of Systems Sugical H&P ROS: Negative: Constitution, Cardiovascular, Respiratory, Neurological, Psychiatric, Hem-Onc, Allergic/Immunologic, Gastrointestinal, Genitourinary, Musculoskeletal, Integumentary, Endocrine and Eyes/Ears/Nose/Thr oat Exam Surgical H&P Exam: Normal: HEENT, Normal: Heart, Normal: Lungs, Normal: Extremities, Normal: Abdomen, Normal: Skin and Normal: Neurological Plan Diagnosis/Plan: Unchanged I have reviewed the history and physical and performed a pertinent physical examination on my patient. No changes have occurred unless specified. Time Spent With Patient Time: Total time managing care of this patient today ____ minutes.
[2022-12-16] MEDS: Lactated Ringers 1,000 ML 100 ML IVCONT (09:49)
--- NOTE | 2022-12-16 10:29 | W.PM.OPN ---
Operative Note Operative Note Date of Service: 12/16/22 Narrative: Procedure Description: EGD Indication: satiety, epigastric pain Anesthesia: MAC FLEXIBLE TRANSORAL UPPER GASTROINTESTINAL ENDOSCOPY UPPER ENDOSCOPY Consent: Indications for the procedure and potential complications of bleeding, perforation, reaction to medications and missed diagnosis were discussed with the patient and informed consent was obtained. Instrument: Olympus GIF H 190 J mid size upper endoscope Monitoring: Vital signs and clinical assessment, continuous EKG monitoring, Pulse oximetry, Carbon Dioxide monitoring and blood pressure monitoring were done throughout the procedure. Procedure: The patient was placed in the left lateral decubitis position and pre-procedure medications were administered and a bite block was placed. The endoscope was inserted into the mouth and advanced under direct vision to the third part of duodenum. A careful inspection was made as the upper endoscope was withdrawn including a retroflexed examination of the proximal stomach; Findings and interventions are described below. Findings: Larynx:normal Esophagus: GE junction at 37 cm, diaphragm hiatus at 40 cm, consistent with 3 cm sliding hiatal hernia. La grade B erosive esophagitis seen at GEJ with linear erosive streaks and erythema with bogginess and congestion, bx taken as well as from distal and proximal esophagus. The LES seemed lax as well. Stomach: Patchy gastric erythema with erosions in the antrum. Biopsies were obtained. Grade 2 flap valve on retroflexed examination of the cardia. Duodenum: Normal bulb and descending duodenum, bx taken Intervention: Biopsies as noted above, pyloric balloon dilation Impression/Findings: erosive esophagitis erosive gastritis hiatal hernia lax LES PLAN: await bx confirm NSAId hx confirm if taking PPI, if taking increase dose or change prep
[2022-12-16 10:33] VITALS: BP 124/66; PULSE 83; RESP 16; TEMP 37.1; O2SAT 97
[2022-12-16 10:48] VITALS: BP 126/65; PULSE 72; RESP 16; O2SAT 97
[2022-12-16] MEDS: Acetaminophen 325 MG TABLET 650 MG PO (11:00)
[2022-12-16 11:03] VITALS: BP 118/41; PULSE 77; RESP 16; TEMP 37.1; O2SAT 98
[2022-12-16 11:18] VITALS: BP 102/58; PULSE 86; RESP 16; TEMP 37.1; O2SAT 97
== END 2022-12-16 12:19 | disposition home or self-care (01) ==
PROVIDERS: PCP Internal Medicine; Visit Provider Internal Medicine Gastroenterology
PROC: 0DJ08ZZ Inspection of Upper Intestinal Tract, Via Natural or Artificial Opening Endoscopic (ICD-10-PCS; CPT 43235; principal; 2022-12-16 10:40)
DX: K22.10 Ulcer of esophagus without bleeding (principal); K25.9 Gastric ulcer, unspecified as acute or chronic, without hemorrhage or perforation; K22.4 Dyskinesia of esophagus; K44.9 Diaphragmatic hernia without obstruction or gangrene; K59.04 Chronic idiopathic constipation; K21.9 Gastro-esophageal reflux disease without esophagitis; K58.2 Mixed irritable bowel syndrome; E66.9 Obesity, unspecified; Z68.41 Body mass index [BMI] 40.0-44.9, adult; Z79.899 Other long term (current) drug therapy
CPT/HCPCS: 43239; 43245; 88305; 88342; 93005; C1726

== ENCOUNTER → 2022-12-16 08:50 | Outpatient (BNV) | payer OTHER, SELFPAY | PROVIDERS: PCP Internal Medicine; Visit Provider Internal Medicine Gastroenterology | DX: R68.81 Early satiety (principal); R10.13 Epigastric pain; K29.70 Gastritis, unspecified, without bleeding; K20.90 Esophagitis, unspecified without bleeding | CPT/HCPCS: 43239 ==

== ENCOUNTER 2022-12-18 13:51 | Outpatient (AMB) | payer OTHER, SELFPAY ==
--- NOTE | 2022-12-18 13:53 | MHC.OFFVIS ---
Intake Vital Signs 12/18/22 14:04 Height 5 ft 6 in Weight 273 lb 5.971 oz BMI 44.1 BP 114/64 Blood Pressure Location Rt brachial Position Sitting Pulse 96 Intake Visit Reasons: EGD follow up Intake Note: Patient presents to in office visit today in EGD follow up. CC: Patient reports she underwent EGD 12/16/22 and she states has been feeling like she has something in her throat that keeps making her gag. She also states her daughter saw white and red spots on the back of her throat. She also c/o headache. Dampener Required: No Accompanied by: Self / Same As Patient Allergies nirmatrelvir [From Paxlovid (EUA)] Allergy (Verified 01/01/23 11:19) Unknown ritonavir [From Paxlovid (EUA)] Allergy (Verified 01/01/23 11:19) Unknown adhesive Adverse Reaction (Verified 01/01/23 11:19) Rash Erythromycin Allergy (Uncoded 11/07/22 12:29) Rash Latex Allergy (Uncoded 11/07/22 12:29) Rash HPI EGD follow up HPI Details Assessment & Plan (1) Chronic idiopathic constipation: Code(s): K59.04 - Chronic idiopathic constipation Plan: HIDA SCAN Not yet obtained EGD scheduled for 12/16/2022 was with [facility] which I cancelled. TODAY'S VISIT Her bowels have been moving well with the senna, but she has to take it in the morning because she takes her levothyroxine at bedtime. She had to move the levothyroxine r/t nausea when she took it in the am. When she takes the senna, along with the simethicone, she will have worsening GERD and nausea. Clearly, this not the best medicine to promote a normal lifestyle for her. Her BM's have been formed and large, only 1 episode diarrhea. (? if cic more dominant). I will start a trial of LInzess 72mcg as this is intended to be used in the morning and will more clearly address some of the complaint she has had of cramping and pain associated with her irritable bowel. She also had severe pain in right colon in 2 isolated incidents, she thought it may be gas but was not. She fell asleep on the toilet. She continues to have a lot of gas. Again, we may need to consider treating for small-bowel bacterial overgrowth or adding Creon going forward depending on her response to promoting good normal bowel motility. She also was started on herpes medication that may be increasing the nausea. She also has pain in the inner labia, hurts wit urination, ? herpers vs marian. Will treat with monistat cream and if not resolving refer to DATABASE ADMINISTRATION MANAGER. I did just tx her with keflex for strep in urine, so this could be a causative reason for a vaginal yeast infection. Return office visit when she is back from her trip. She is going to visit family members out of state. (2) GERD (gastroesophageal reflux disease): Comment: Barium swallow 06/2022 [facility] IMPRESSION Small sliding type 1 hiatal hernia. Code(s): K21.9 - Gastro-esophageal reflux disease without esophagitis (3) Vaginal marian: Code(s): B37.31 - Acute candidiasis of vulva and vagina Medications: New linaclotide (Linze ss) 72 mcg PO QAM 30 caps 6RF K59.04 - Chronic i diopathic constipa tion famotidine (Pepcid ) 40 mg PO BEDTIME 30 tabs 3RF K21.9 - Gastro-eso phageal reflux dis ease without esoph agitis miconazole nitrate 2% (Monistat 7) 1 appful vaginal BEDTIME 7 days 45 grams 0RF B37.31 - Acute can didiasis of vulva and vagina Discontinued sennosides (Senna Laxative) Disco ntinued Reason: D octor's Order 17.2 mg (2 x 8.6 m g) PO BEDTIME 60 t abs 6RF K58.2 - Mixed irri table bowel syndro me EGD 12/16/22 Findings: Larynx:normal Esophagus: GE junction at 37 cm, diaphragm hiatus at 40 cm, consistent with 3 cm sliding hiatal hernia. La grade B erosive esophagitis seen at GEJ with linear erosive streaks and erythema with bogginess and congestion, bx taken as well as from distal and proximal esophagus. The LES seemed lax as well. Stomach: Patchy gastric erythema with erosions in the antrum. Biopsies were obtained. Grade 2 flap valve on retroflexed examination of the cardia. Duodenum: Normal bulb and descending duodenum, bx taken Intervention: Biopsies as noted above, pyloric balloon dilation Impression/Findings: erosive esophagitis erosive gastritis hiatal hernia lax LES PLAN: await bx confirm NSAId hx confirm if taking PPI, if taking increase dose or change prep BIOPSY Received: 12/16/22 Diagnosis A. Duodenum, biopsy: Duodenal mucosa with predominantly preserved villi and focal mild features of chronic/non-specific duodenitis. B. Stomach, biopsy: Gastric antral/body mucosa with reactive changes and focal minimal chronic inactive inflammation; negative for H pylori, intestinal metaplasia and dysplasia. C. Gastroesophageal junction, biopsy: Squamous mucosa with hyperplasia, and columnar mucosa with hyperplastic/regenerative changes and acute and chronic inflammation; negative for intestinal metaplasia and dysplasia. D. Esophagus, distal, biopsy: Squamous mucosa with hyperplasia and focal intraepithelial neutrophils and eosinophils (up to 3 per high-power field) consistent with esophagitis; no columnar mucosa present. E. Esophagus, proximal, biopsy: Squamous mucosa with no specific change; no columnar mucosa present HIDA SCAN 12/11/22 IMPRESSION: Visualization of the gallbladder is evidence of a patent cystic duct and strong evidence against the diagnosis of acute cholecystitis. The common bile duct is patent. Gallbladder emptying and ejection fraction are normal. Liver function appears normal. CORRESONDENCE On 12/17/22 @ 18:32 Bj Rangel Wrote To Bright,July - July--pt called after procedure having sore throat and discomfort in throat, sent her magic mouthwash, she is already scheduled to see you tomorrow--if any concerns call me, also she was changed to esomeprazole --path with acute and chronic GEJ inflammation TODAY'S VISIT She has had a very sore throat with a feeling like there is a flap in her upper throat that causes choking and dry heaves. she has not been able to eat only drinking liquids. She called Dr. Rangel who send an RX for magic mouthwash....but she was not able to get it from [facility] - apparently they did not receive the script. She tried the LInzess 72 but has stopped it as she is not eating. She continues on her fiber and probiotics. I will write out the MMW script for her to hand carry to [facility]. ROV 2 weeks. [facility] Medical History Sleep apnea GERD (gastroesophageal reflux disease) Hypothyroid History of endometrial biopsy Surgical History H/O colonoscopy H/O hernia repair History of tubal ligation History of section Social History Alcohol intake: current Alcohol intake frequency: holidays/special occasions only Patient Tobacco Use Status: Never used Tobacco Review of Systems Const Denies fatigue, Denies fever(s), Denies night sweats, Reports poor appetite and Denies weight loss ENT Reports Normal hearing present, Denies dental pain, Denies dysphagia, Denies hearing loss, Denies mouth pain, Reports odynophagia, Reports sore throat, Denies throat swelling, Denies tongue swelling and Reports other (Dentition adequate) Card Reports chest pain, Reports lightheadedness and Reports palpitations Resp Reports no additional complaints GI Denies abdominal pain, Denies melena, Denies bloating, Denies hematochezia, Reports constipation, Denies GI cramping, Denies dysphagia, Denies excessive flatus, Denies early satiety, Reports heartburn, Denies diarrhea, Denies nausea, Reports odynophagia, Denies vomiting and Denies hematemesis Skin/Breast Denies pruritus, Denies lesions, Denies rash and Denies jaundice Neuro Reports Normal hearing present and Denies Abnormal speech present Endo Denies fatigue and Reports palpitations Aller/Immun Denies throat swelling and Denies tongue swelling Physical Exam Vital Signs: Last Vital Signs Pulse 96 12/18/22 14:04 BP 114/64 12/18/22 14:04 BMI result Body Mass Index 44.1 Const General: cooperative, no acute distress, well developed and well groomed Nutritional Appearance: well nourished and obese Orientation/consciousness: oriented to person, oriented to place and oriented to time Limitations: No language barrier HEENT Head: Yes normocephalic and Yes atraumatic Eyes General: appearance normal, both eyes and all related structures Pupils: Equal, round and reactive pupils present Neck Neck: Yes normal visual inspection and Yes no lymphadenopathy Thyroid: Thyroid normal Resp Effort & Inspection: normal respiratory effort and able to speak in complete sentences Auscultation: clear to auscultation bilaterally Cardio Rate: regular rate Rhythm: regular rhythm Heart sounds: Normal, physiologic split S2 sound present Peripheral pulses: radial pulses present and posterior tibial pulses present GI Inspection: No distended, Yes Abdominal panniculus present and Yes obesity Palpation (GI): Soft to palpation, nontender, no guarding, not rigid and No hepatosplenomegaly present Percussion: Yes normal to percussion Auscultation: normal bowel sounds Rectal Exam - Female: deferred Skin General skin exam: no rashes or lesions noted, turgor normal, skin not dry, no jaundice, No spider nevi and no striae Rashes: no rashes Nails: normal Neuro General: oriented to person, oriented to place and oriented to time Cranial nerves: Yes Equal, round and reactive pupils present and Yes Normal hearing present Speech: No Abnormal speech present Extrem General: Yes normal to inspection, No clubbing, No cyanosis and No edema Psych Appearance: grossly normal and well kempt Mental Status: mental status grossly normal Speech and movement: Normal speech and movement present Affect: Anxious affect present Attitude: cooperative Thought process: Normal thought process present and not confabulating Thought content: Normal thought content present Insight: Limited insight present (Psych) Judgement: Limited judgement present (Psych) Results Reviewed Results Reviewed: EGD 12/16/22 Findings: Larynx:normal Esophagus: GE junction at 37 cm, diaphragm hiatus at 40 cm, consistent with 3 cm sliding hiatal hernia. La grade B erosive esophagitis seen at GEJ with linear erosive streaks and erythema with bogginess and congestion, bx taken as well as from distal and proximal esophagus. The LES seemed lax as well. Stomach: Patchy gastric erythema with erosions in the antrum. Biopsies were obtained. Grade 2 flap valve on retroflexed examination of the cardia. Duodenum: Normal bulb and descending duodenum, bx taken Intervention: Biopsies as noted above, pyloric balloon dilation Impression/Findings: erosive esophagitis erosive gastritis hiatal hernia lax LES PLAN: await bx confirm NSAId hx confirm if taking PPI, if taking increase dose or change prep BIOPSY Received: 12/16/22 Diagnosis A. Duodenum, biopsy: Duodenal mucosa with predominantly preserved villi and focal mild features of chronic/non-specific duodenitis. B. Stomach, biopsy: Gastric antral/body mucosa with reactive changes and focal minimal chronic inactive inflammation; negative for H pylori, intestinal metaplasia and dysplasia. C. Gastroesophageal junction, biopsy: Squamous mucosa with hyperplasia, and columnar mucosa with hyperplastic/regenerative changes and acute and chronic inflammation; negative for intestinal metaplasia and dysplasia. D. Esophagus, distal, biopsy: Squamous mucosa with hyperplasia and focal intraepithelial neutrophils and eosinophils (up to 3 per high-power field) consistent with esophagitis; no columnar mucosa present. E. Esophagus, proximal, biopsy: Squamous mucosa with no specific change; no columnar mucosa present HIDA SCAN 12/11/22 IMPRESSION: Visualization of the gallbladder is evidence of a patent cystic duct and strong evidence against the diagnosis of acute cholecystitis. The common bile duct is patent. Gallbladder emptying and ejection fraction are normal. Liver function appears normal. CORRESONDENCE On 12/17/22 @ 18:32 Bj Rangel Wrote To [place] July--pt called after procedure having sore throat and discomfort in throat, sent her magic mouthwash, she is already scheduled to see you tomorrow--if any concerns call me, also she was changed to esomeprazole --path with acute and chronic GEJ inflammation Assessment & Plan Assessment & Plan (1) Throat irritation: Comment: Post procedure after EGD Code(s): J39.2 - Other diseases of pharynx Plan: She has had a very sore throat with a feeling like there is a flap in her upper throat that causes choking and dry heaves. she has not been able to eat only drinking liquids. She called Dr. Rangel who send an RX for magic mouthwash....but she was not able to get it from [facility] - apparently they did not receive the script. She tried the LInzess 72 but has stopped it as she is not eating. She continues on her fiber and probiotics. I will write out the MMW script for her to hand carry to [facility]. We review the EGD results and the HIDA scan in it does appear that erosive esophagitis and gastritis are water causing her symptoms. She should continue on her as omeprazole 40 mg in the morning and will add famotidine 40 mg at night. If we can will try to get twice a day dosing on the PPI. She also has a doorknob complaint of palpitations dizziness and chest pain and is requesting referral to Cardiology I will give her this. However encourage her to present to the ER if the symptoms worsen since we cannot guarantee an urgent access to Cardiology. She says she has had palpitations for quite some time but they seem to be worsening slightly. ROV 2 weeks. (2) Erosive gastritis: Code(s): K29.60 - Other gastritis without bleeding (3) Erosive esophagitis: Code(s): K22.10 - Ulcer of esophagus without bleeding (4) Chronic idiopathic constipation: Code(s): K59.04 - Chronic idiopathic constipation (5) Irritable bowel syndrome with both constipation and diarrhea: Code(s): K58.2 - Mixed irritable bowel syndrome (6) GERD (gastroesophageal reflux disease): Comment: Barium swallow 06/2022 [facility] IMPRESSION Small sliding type 1 hiatal hernia. Code(s): K21.9 - Gastro-esophageal reflux disease without esophagitis (7) Palpitations: Code(s): R00.2 - Palpitations Orders: Referrals Cardiology Referral R00.2 - Palpitations, I45.10 - Unspecified right bundle-branch block Medications: Changed From Magic Mouthwash Diphen/Lido/Antacid 1:1:1 Lidocaine Viscous 2 % 80mL; diphenhydramine 12.5 mg/5 mL 80mL; aluminum-mag hydrox-simeth [id number]/5mL 80mL 10 mL PO .qid 240 mL 0RF To Magic Mouthwash Diphen/Lido/Antacid 1:1:1 Lidocaine Viscous 2 % 80mL; diphenhydramine 12.5 mg/5 mL 80mL; aluminum-mag hydrox-simeth [id number]/5mL 80mL, SHE SHOULD SWISH AND SWALLOW 10 mL PO .qid 240 mL 0RF Refilled Magic Mouthwash Diphen/Lido/Antacid 1:1:1 Lidocaine Viscous 2 % 80mL; diphenhydramine 12.5 mg/5 mL 80mL; aluminum-mag hydrox-simeth [id number]/5mL 80mL 10 mL PO .qid 240 mL 0RF Coding Level of Care Code Est Pt Level 4 (66479) Diagnoses Throat irritation J39.2 Erosive gastritis K29.60 Erosive esophagitis K22.10 Chronic idiopathic constipation K59.04 Irritable bowel syndrome with both constipation and diarrhea K58.2 GERD (gastroesophageal reflux disease) K21.9 Palpitations R00.2
[2022-12-18 14:04] VITALS: BP 114/64; PULSE 96; BMI 44.1
== END 2022-12-18 15:05 | disposition home or self-care (01) ==
PROVIDERS: PCP Internal Medicine; Visit Provider Nurse Practitioner
DX: J39.2 Other diseases of pharynx (principal); K29.60 Other gastritis without bleeding; K22.10 Ulcer of esophagus without bleeding; K59.04 Chronic idiopathic constipation; K58.2 Mixed irritable bowel syndrome; K21.9 Gastro-esophageal reflux disease without esophagitis; R00.2 Palpitations
CPT/HCPCS: 99214

== ENCOUNTER → 2022-12-18 13:51 | Outpatient (BNVA) | payer OTHER, SELFPAY | PROVIDERS: PCP Internal Medicine; Visit Provider Nurse Practitioner | DX: J39.2 Other diseases of pharynx (principal); K29.60 Other gastritis without bleeding; K22.10 Ulcer of esophagus without bleeding; K59.04 Chronic idiopathic constipation; K58.2 Mixed irritable bowel syndrome; K21.9 Gastro-esophageal reflux disease without esophagitis; R00.2 Palpitations; Z79.899 Other long term (current) drug therapy; Z98.890 Other specified postprocedural states | CPT/HCPCS: 99212 ==

== ENCOUNTER 2023-01-01 11:09 | Outpatient (REF) | payer OTHER, SELFPAY ==
[2023-01-01 12:14] LABS: MANUAL DIFF FLAG NO
[2023-01-01 12:34] LABS: Basophils Percent Auto 0.4 % (0-2); Eosinophils Absolute Auto 0.2 X10*3/uL (0.0-0.4); Eosinophils Percent Auto 2.1 % (0-4); Hematocrit 42.1 % (37.0-47.0); Hemoglobin 13.5 g/dl (12.0-16.0); Imm Gran Abs Auto 0.02 X10*3/uL (0.00-0.03); Imm Gran Pct Auto 0.3 % (0.0-0.4); Lymphocytes Absolute Auto 2.2 X10*3/uL (1.2-4.9); Lymphocytes Percent Auto 29.4 % (20-40); Mean Corpuscular HGB Conc 32.1 g/dl (31.0-35.0); Mean Corpuscular Hemoglobin 27.8 pg (27.0-33.0); Mean Corpuscular Volume 86.6 fL (80.0-98.0); Mean Platelet Volume 10.2 fL (9.4-12.3); Monocytes Absolute Auto 0.4 X10*3/uL (0.1-1.2); Monocytes Percent Auto 5.3 % (2-11); Neutrophils Absolute Auto 4.8 x10*3/uL (2.0-8.3); Neutrophils Percent Auto 62.5 % (45-73); Platelet Count 293 X10*3/uL (160-400); Red Blood Count 4.86 X10*6/uL (4.20-5.50); Red Cell Distribution Width 13.2 % (11.0-16.0); White Blood Count 7.6 X10*3/uL (4.8-10.8)
[2023-01-01 13:18] LABS: Alanine Aminotransferase 14 U/L (0-31); Albumin Level 3.9 g/dL (3.5-5.0); Alkaline Phosphatase 69 U/L (39-117); Anion Gap 14 (12-20); Aspartate Amino Transferase 17 U/L (5-31); Bilirubin Total 0.6 mg/dL (0.0-1.0); Blood Urea Nitrogen 11 mg/dL (9-16); Carbon Dioxide 24 mmol/L (22-29); Chloride 106 mmol/L (96-108); Estimated Glomerular Filt Rate > 60; Glucose Random 95 mg/dL (60-115); Sodium 140 mmol/L (135-145); Total Protein 6.7 g/dL (6.5-8.0)
[2023-01-01 13:38] LABS: TSH reflex Free T4 < 0.01 uIU/mL (0.32-4.0)
[2023-01-01 13:46] LABS: Folate 8.1 ng/mL (> or = 4.0); Vitamin B12 330 pg/mL (200-900)
[2023-01-01 14:13] LABS: Free T4 (Free Thyroxine) 1.35 ng/dL (0.71-1.85)
[2023-01-01 14:15] LABS: Appearance Urine Clear; Color Urine Yellow; Glucose Urine UA Negative (Negative); Leukocyte Esterase Urine Negative (Negative); Nitrite Urine Negative (Negative); Specific Gravity - Urine 1.025 (1.005-1.025); Urine Blood Negative (Negative); Urine Ketones Negative (Negative); Urine Protein Negative (Neg-Trace)
[2023-01-05 21:58] LABS: Lyme Abs Screen <0.90 index
[2023-01-06 14:38] LABS: Vitamin D 25-OH, D2 <4 ng/mL; Vitamin D 25-OH, D3 14 ng/mL; Vitamin D 25-OH, Total 14 ng/mL (30-100)
== END 2023-01-01 11:10 | disposition home or self-care (01) ==
LOC: HO.LAB 11:09
PROVIDERS: PCP Internal Medicine; Visit Provider Nurse Practitioner
DX: K21.9 Gastro-esophageal reflux disease without esophagitis (principal); K59.04 Chronic idiopathic constipation; K58.2 Mixed irritable bowel syndrome; R35.0 Frequency of micturition; R00.2 Palpitations; R53.83 Other fatigue; R11.2 Nausea with vomiting, unspecified; J39.2 Other diseases of pharynx
CPT/HCPCS: 36415; 80053; 81003; 82306; 82607; 82746; 84439; 84443; 85025; 86617; 86618; 99212

== ENCOUNTER 2023-01-01 11:09 | Outpatient (AMB) | payer OTHER, SELFPAY ==
--- NOTE | 2023-01-01 11:13 | A.OFFVIS_ITS ---
Intake Vital Signs 01/01/23 11:14 Height 5 ft 6 in Weight 277 lb 5.464 oz BMI 44.8 BP 110/64 Blood Pressure Location Lt brachial Position Sitting Pulse 92 Intake Visit Reasons: 2 weeks esophigitis Intake Note: Patient present to in office visit today in 2 weeks follow up of esophigitis. CC: Patient reports she feels better from esophagitis but still feels like there is a flap in there. She c/o diarrhea and loose stools, tiredness, stomach pain, heart palpitations, and panic attacks. Stomach pain worst when sleeping on left side feels like she has a big bruise from left flank. Accompanied by: Self / Same As Patient Allergies nirmatrelvir [From Paxlovid (EUA)] Allergy (Verified 01/01/23 11:19) Unknown ritonavir [From Paxlovid (EUA)] Allergy (Verified 01/01/23 11:19) Unknown adhesive Adverse Reaction (Verified 01/01/23 11:19) Rash Erythromycin Allergy (Uncoded 11/07/22 12:29) Rash Latex Allergy (Uncoded 11/07/22 12:29) Rash HPI 2 weeks esophigitis HPI Details Assessment & Plan (1) Chronic idiopathic constipation: Code(s): K59.04 - Chronic idiopathic constipation (2) Irritable bowel syndrome with both c onstipation and diarrhea: Code(s): K58.2 - Mixed irritable bowel syndrome (3) Nausea and vomiting: Code(s): R11.2 - Nausea with vomiting, unspecified (4) GERD (gastroesophageal reflux diseas e): Comment: Barium swallow 06/2022 [facility] IMPRESSION Small sliding type 1 hiatal hernia. Code(s): K21.9 - Gastro-esophageal reflux disease without esophagitis (5) Palpitations: Code(s): R00.2 - Palpitations (6) Right bundle branch block: Code(s): I45.10 - Unspecified right bundle-branch block Orders: Referrals Cardiology Referra l I45.10 - Unspecifi ed right bundle-br anch block, R00.2 - Palpitations Medications: Changed From Magic Mouthwash Di phen/Lido/Antacid 1:1:1 Lidocaine Viscous 2 % 80mL; diphenhydramine 1 2.5 mg/5 mL 80mL; aluminum-mag hydro x-simeth 400mg-400 mg-40mg/5mL 80mL 10 mL PO .qid 240 mL 0RF To Magic Mouthwash Di phen/Lido/Antacid 1:1:1 Lidocaine Viscous 2 % 80mL; diphenhydramine 1 2.5 mg/5 mL 80mL; aluminum-mag hydro x-simeth 400mg-400 mg-40mg/5mL 80mL, SHE SHOULD SWISH A ND SWALLOW 10 mL PO .qid 240 mL 0RF Refilled Magic Mouthwash Di phen/Lido/Antacid 1:1:1 Lidocaine Viscous 2 % 80mL; diphenhydramine 1 2.5 mg/5 mL 80mL; aluminum-mag hydro x-simeth 400mg-400 mg-40mg/5mL 80mL 10 mL PO .qid 240 mL She has had a very sore throat with a feeling like the re is a flap in her upper throat t hat causes choking and dry heaves. s he has not been ab le to eat only dri nking liquids. SHe called Dr. Rangel who send an RX fo r magic mouthwash. ...but she was not able to get it fr om [facility] - apparentl y they did not rec eive the script. She tried the LInz ess 72 but has sto pped it as she is not eating. She co ntinues on her fib er and probiotics. I will write ou t the MMW script f or her to hand car ry to [facility]. ROV 2 weeks. correspondence On 12/17/22 @ 18:32 Bj Rangel Wrote To Bright,July - July--pt called after procedure having sore throat and discomfort in throat, sent her magic mouthwash, she is already scheduled to see you tomorrow--if any concerns call me, also she was changed to esomeprazole --path with acute and chronic GEJ inflammation TODAY'S VISIT Her throat pain has resolved with the MMW. HER GERD is also controlled on the PPI's except for dietary indiscretions like pizza. She is c/o persistent fatigue and palpitations. She has an appt with cardiology in April. Her PCP is at [facility]. I will order some basic labs to see if this can be of help for her and for cardiology such as CBC, Chem profile, TSH, Lyme, B-12, Vit D, but advise her to follow up on this with her PCP as it may need a bigger work up than I can assist with. She also has near panic attacks and anxiety and is on a wait list for mental health services. She is using the LInzess intermittently now as she returns to her regular diet. She also uses metamucil. She also suffers frequent PEREZ's. ROV 4 weeks. This is per patient request because ?I feel better when I talk to you. ? PFSH Medical History Sleep apnea GERD (gastroesophageal reflux disease) Hypothyroid History of endometrial biopsy Surgical History H/O colonoscopy H/O hernia repair History of tubal ligation History of section Social History Alcohol intake: current Alcohol intake frequency: holidays/special occasions only Patient Tobacco Use Status: Never used Tobacco Review of Systems Const Reports fatigue, Denies fever(s), Denies night sweats, Denies poor appetite and Denies weight loss Eyes Details: glasses Reports requires corrective lenses ENT Reports Normal hearing present, Denies dental pain, Denies dysphagia, Reports dizziness, Denies hearing loss, Denies mouth pain, Denies odynophagia, Denies throat swelling, Denies tongue swelling and Reports other (Dentition adequate) Card Reports palpitations Resp Reports no additional complaints GI Denies abdominal pain, Denies melena, Denies bloating, Denies hematochezia, Reports constipation, Denies GI cramping, Denies dysphagia, Denies excessive flatus, Denies early satiety, Reports heartburn, Denies diarrhea, Denies nausea, Denies odynophagia, Denies vomiting and Denies hematemesis Skin/Breast Denies pruritus, Denies lesions, Denies rash and Denies jaundice Neuro Reports Normal hearing present, Denies Abnormal speech present and Reports dizziness Psych Reports anxiety, Reports difficulty concentrating and Reports panic attacks Endo Reports fatigue and Reports palpitations Aller/Immun Denies throat swelling and Denies tongue swelling Physical Exam Vital Signs: Last Vital Signs Pulse 92 01/01/23 11:14 BP 110/64 01/01/23 11:14 BMI result Body Mass Index 44.8 Const General: cooperative, no acute distress, well developed and well groomed Nutritional Appearance: well nourished and obese morbidly obese Orientation/consciousness: oriented to person, oriented to place and oriented to time Limitations: No language barrier HEENT Head: Yes normocephalic and Yes atraumatic Eyes General: appearance normal, both eyes and all related structures Pupils: Equal, round and reactive pupils present Neck Neck: Yes normal visual inspection and Yes no lymphadenopathy Thyroid: Thyroid normal Resp Effort & Inspection: normal respiratory effort and able to speak in complete sentences Auscultation: clear to auscultation bilaterally Cardio Rate: regular rate Rhythm: regular rhythm Heart sounds: Normal, physiologic split S2 sound present Peripheral pulses: radial pulses present and posterior tibial pulses present GI Inspection: No distended, Yes Abdominal panniculus present and Yes obesity Palpation (GI): Soft to palpation, nontender, no guarding, not rigid and No hepatosplenomegaly present Percussion: Yes normal to percussion Auscultation: normal bowel sounds Rectal Exam - Female: deferred Skin General skin exam: no rashes or lesions noted, turgor normal, skin not dry, no jaundice, No spider nevi and no striae Rashes: no rashes Nails: normal Neuro General: oriented to person, oriented to place and oriented to time Cranial nerves: Yes Equal, round and reactive pupils present and Yes Normal hearing present Speech: No Abnormal speech present Extrem General: Yes normal to inspection, No clubbing, No cyanosis and No edema Psych Appearance: grossly normal and well kempt Mental Status: mental status grossly normal Speech and movement: Normal speech and movement present Affect: Anxious affect present Attitude: cooperative Thought process: Circumstantial thought process present, not confabulating and Loose association thought process present Thought content: Normal thought content present Insight: Limited insight present (Psych) and Poor insight present (Psych) Judgement: Limited judgement present (Psych) and Poor judgement present (Psych) Assessment & Plan Assessment & Plan (1) Chronic idiopathic constipation: Code(s): K59.04 - Chronic idiopathic constipation (2) Irritable bowel syndrome with both constipation and diarrhea: Code(s): K58.2 - Mixed irritable bowel syndrome (3) Nausea and vomiting: Code(s): R11.2 - Nausea with vomiting, unspecified (4) GERD (gastroesophageal reflux disease): Comment: Barium swallow 06/2022 [facility] IMPRESSION Small sliding type 1 hiatal hernia. Code(s): K21.9 - Gastro-esophageal reflux disease without esophagitis (5) Palpitations: Code(s): R00.2 - Palpitations (6) Fatigue: Code(s): R53.83 - Other fatigue (7) Throat irritation: Comment: Post procedure after EGD Code(s): J39.2 - Other diseases of pharynx Orders: Orders Complete Blood Count Auto Diff Today R00.2 - Palpitations, R53.83 - Other fatigue Lyme IgG/IgM w/reflex to WB Today R00.2 - Palpitations, R53.83 - Other fatigue Vitamin D 25-OH (D2 and D3) Today R00.2 - Palpitations, R53.83 - Other fatigue Comprehensive Met. Panel Today R00.2 - Palpitations, R53.83 - Other fatigue TSH reflex Free T4 Today R00.2 - Palpitations, R53.83 - Other fatigue Vitamin B12 and Folate Today R00.2 - Palpitations, R53.83 - Other fatigue Coding Level of Care Code Est Pt Level 4 (28225) Diagnoses Chronic idiopathic constipation K59.04 Irritable bowel syndrome with both constipation and diarrhea K58.2 Nausea and vomiting R11.2 GERD (gastroesophageal reflux disease) K21.9 Palpitations R00.2 Fatigue R53.83 Throat irritation J39.2
[2023-01-01 11:14] VITALS: BP 110/64; PULSE 92; BMI 44.8
== END 2023-01-01 12:34 | disposition home or self-care (01) ==
PROVIDERS: PCP Internal Medicine; Visit Provider Nurse Practitioner
DX: K59.04 Chronic idiopathic constipation (principal); K58.2 Mixed irritable bowel syndrome; R11.2 Nausea with vomiting, unspecified; K21.9 Gastro-esophageal reflux disease without esophagitis; R00.2 Palpitations; R53.83 Other fatigue; J39.2 Other diseases of pharynx
CPT/HCPCS: 99214

== ENCOUNTER 2023-01-29 11:08 | Outpatient (AMB) | payer OTHER, SELFPAY ==
--- NOTE | 2023-01-29 11:16 | A.OFFVIS_ITS ---
Intake Vital Signs 01/29/23 11:41 Height 5 ft 6 in Weight 284 lb 6.341 oz BMI 45.9 BP 119/68 Blood Pressure Location Lt brachial Position Sitting Pulse 84 Intake Visit Reasons: Follow up 4 weeks Intake Note: Patient present to in office visit today in 4 weeks follow up of CIC. CC: Patient reports medication is helping with GERD. She c/o been hungry all the time. 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 Accompanied by: Self / Same As Patient Allergies nirmatrelvir [From Paxlovid (EUA)] Allergy (Verified 01/01/23 11:19) Unknown ritonavir [From Paxlovid (EUA)] Allergy (Verified 01/01/23 11:19) Unknown adhesive Adverse Reaction (Verified 01/01/23 11:19) Rash Erythromycin Allergy (Uncoded 11/07/22 12:29) Rash Latex Allergy (Uncoded 11/07/22 12:29) Rash HPI Follow up 4 weeks HPI Details Assessment & Plan (1) Chronic idiopathic constipation: Code(s): K59.04 - Chronic idiopathic constipation (2) Irritable bowel syndrome with both c onstipation and diarrhea: Code(s): K58.2 - Mixed irritable bowel syndrome (3) Nausea and vomiting: Code(s): R11.2 - Nausea with vomiting, unspecified (4) GERD (gastroesophageal reflux diseas e): Comment: Barium swallow 06/2022 [facility] IMPRESSION Small sliding type 1 hiatal hernia. Code(s): K21.9 - Gastro-esophageal reflux disease without esophagitis (5) Palpitations: Code(s): R00.2 - Palpitations (6) Fatigue: Code(s): R53.83 - Other fatigue (7) Throat irritation: Comment: Post procedure after EGD Code(s): J39.2 - Other diseases of pharynx Orders: Orders Complete Blood Cou nt Auto Diff Today R00.2 - Palpitatio ns, R53.83 - Other fatigue Lyme IgG/IgM w/ref joon to WB Today R00.2 - Palpitatio ns, R53.83 - Other fatigue Vitamin D 25-OH (D 2 and D3) Today R00.2 - Palpitatio ns, R53.83 - Other fatigue Comprehensive Met. Panel Today R00.2 - Palpitatio ns, R53.83 - Other fatigue TSH reflex Free T4 Today R00.2 - Palpitatio ns, R53.83 - Other fatigue Vitamin B12 and Fo late Today R00.2 - Palpitatio ns, R53.83 - Other fatigu Her throat pain has resolved with the MMW. HER GERD is also controlled on the PPI's except for dietary indiscretions like pizza. She is c/o persistent fatigue and palpitations. She has an appt with cardiology in April. Her PCP is at [facility]. I will order some basic labs to see if this can be of help for her and for cardiology such as CBC, Chem profile, TSH, Lyme, B-12, Vit D, but advise her to follow up on this with her PCP as it may need a bigger work up than I can assist with. She also has near panic attacks and anxiety and is on a wait list for mental health services. She is using the LInzess intermittently now as she returns to her regular diet. She also uses metamucil. She also suffers frequent PEREZ's. ROV 4 weeks. This is per patient request because ?I feel better when I talk to you. ? LABS: Laboratory Tests 01/01/23 12:13 WBC 7.6 Hgb 13.5 Hct 42.1 Plt Count 293 Estimated GFR > 60 Total Bilirubin 0.6 AST 17 ALT 14 Alkaline Phosphata se 69 Vitamin B12 330 25-OH Vitamin D To mikey 14 L Folate 8.1 TSH < 0.01 L Free T4 1.35 Lyme Screen IgG & IgM <0.90 01/01/23-[address]: Rehana Asutin, Li se Nery ORDERED: Ua Clean Catch QUERIES: Sourc e: Urine, Clean Ca tch Test Result Flag Refere nce Si te Ur Color Yellow Ur Appear C lear P H 6. 0 5.0-9.0 Ur Glu Negati ve Negative mg/d L Urine Blood Negative Negative Spec Gr avity Ur 1.025 1.005-1.025 Urine Pro tein Negative N eg-Trace mg/dL Urine Keton es Negative Neg ative mg/dL Ur Nitrite Negative Negat ashkan Ur Aroldo Esterase Negative Negativ e TODAY'S VISIT I printed labs for her to take to her PCP. She says that her thyroid med was lowered about a month ago, this may be an ongoing process with her PCP. She will be seeing cardiology soon for palpitations. Her vit D is mildly low and I recommend she take and OTC vit D supplement. She continues to have brain fog. SHe also questions ADD because she was in a program for mild ADD and dyslexia in [place]. She says she is ravenously hungry lately despite how much she eats. She has a lot of borborygmus as well. She also is c/o leg cramping in the legs, arms and flank and neck. She will have breakthough GERD if she forgets her esomeprazole or if she has hot chocolate or pasta with sauce. She uses Linzess and miralax prn. I defer any further tx for he more general sx to her PCP. I printed labs for her to take to them. Return office visit in 6 months. [facility] Medical History Sleep apnea GERD (gastroesophageal reflux disease) Hypothyroid History of endometrial biopsy Surgical History H/O colonoscopy H/O hernia repair History of tubal ligation History of section Social History Alcohol intake: current Alcohol intake frequency: holidays/special occasions only Patient Tobacco Use Status: Never used Tobacco Review of Systems Const Reports fatigue, Denies fever(s), Denies night sweats, Denies poor appetite and Denies weight loss Eyes Details: glasses Reports requires corrective lenses ENT Reports Normal hearing present, Denies dental pain, Denies dysphagia, Denies hearing loss, Denies mouth pain, Denies odynophagia, Denies throat swelling, Denies tongue swelling and Reports other (Dentition adequate) Card Reports palpitations Resp Reports no additional complaints GI Details: Increased appetite Denies abdominal pain, Denies melena, Denies bloating, Denies hematochezia, Reports constipation, Denies GI cramping, Denies dysphagia, Denies excessive flatus, Denies early satiety, Reports heartburn, Denies diarrhea, Denies nausea, Denies odynophagia, Denies vomiting and Denies hematemesis Musc Reports myalgias and Reports muscle cramps Skin/Breast Denies pruritus, Denies lesions, Denies rash and Denies jaundice Neuro Details: Difficulty concentrating Reports Normal hearing present and Denies Abnormal speech present Psych Reports difficulty concentrating Endo Reports fatigue and Reports palpitations Aller/Immun Denies throat swelling and Denies tongue swelling Physical Exam Vital Signs: Last Vital Signs Pulse 84 01/29/23 11:41 BP 119/68 01/29/23 11:41 BMI result Body Mass Index 45.9 Const General: cooperative, no acute distress, well developed and well groomed Nutritional Appearance: well nourished and obese Orientation/consciousness: oriented to person, oriented to place and oriented to time Limitations: No language barrier HEENT Head: Yes normocephalic and Yes atraumatic Eyes General: appearance normal, both eyes and all related structures Pupils: Equal, round and reactive pupils present Neck Neck: Yes normal visual inspection and Yes no lymphadenopathy Thyroid: Thyroid normal Resp Effort & Inspection: normal respiratory effort and able to speak in complete sentences Auscultation: clear to auscultation bilaterally Cardio Rate: regular rate Rhythm: regular rhythm Heart sounds: Normal, physiologic split S2 sound present Peripheral pulses: radial pulses present and posterior tibial pulses present GI Inspection: No distended, Yes Abdominal panniculus present and Yes obesity Palpation (GI): Soft to palpation, nontender, no guarding, not rigid and No hepatosplenomegaly present Percussion: Yes normal to percussion Auscultation: normal bowel sounds Rectal Exam - Female: deferred Skin General skin exam: no rashes or lesions noted, turgor normal, skin not dry, no jaundice, No spider nevi and no striae Rashes: no rashes Nails: normal Neuro General: oriented to person, oriented to place and oriented to time Cranial nerves: Yes Equal, round and reactive pupils present and Yes Normal hearing present Speech: No Abnormal speech present Extrem General: Yes normal to inspection, No clubbing, No cyanosis and No edema Psych Appearance: grossly normal and well kempt Mental Status: mental status grossly normal Speech and movement: Pressured speech present Affect: normal affect Attitude: cooperative Thought process: Normal thought process present and not confabulating Thought content: Normal thought content present Insight: Limited insight present (Psych) Judgement: Limited judgement present (Psych) Assessment & Plan Assessment & Plan (1) Erosive gastritis: Code(s): K29.60 - Other gastritis without bleeding (2) Erosive esophagitis: Code(s): K22.10 - Ulcer of esophagus without bleeding (3) Throat irritation: Comment: Post procedure after EGD Code(s): J39.2 - Other diseases of pharynx (4) Chronic idiopathic constipation: Code(s): K59.04 - Chronic idiopathic constipation (5) GERD (gastroesophageal reflux disease): Comment: Barium swallow 06/2022 [facility] IMPRESSION Small sliding type 1 hiatal hernia. Code(s): K21.9 - Gastro-esophageal reflux disease without esophagitis (6) Fatigue: Code(s): R53.83 - Other fatigue (7) Palpitations: Code(s): R00.2 - Palpitations Plan I printed labs for her to take to her PCP. She says that her thyroid med was lowered about a month ago, this may be an ongoing process with her PCP. She will be seeing cardiology soon for palpitations. Her vit D is mildly low and I recommend she take and OTC vit D supplement. She continues to have brain fog. SHe also questions ADD because she was in a program for mild ADD and dyslexia in . She says she is ravenously hungry lately despite how much she eats. She has a lot of borborygmus as well. She also is c/o leg cramping in the legs, arms and flank and neck. She will have breakthough GERD if she forgets her esomeprazole or if she has hot chocolate or pasta with sauce. She uses Linzess and miralax prn. I defer any further tx for he more general sx to her PCP. I printed labs for her to take to them. Return office visit in 6 months. Coding Level of Care Code Est Pt Level 3 (09649) Diagnoses Erosive gastritis K29.60 Erosive esophagitis K22.10 Throat irritation J39.2 Chronic idiopathic constipation K59.04 GERD (gastroesophageal reflux disease) K21.9 Fatigue R53.83 Palpitations R00.2
[2023-01-29 11:41] VITALS: BP 119/68; PULSE 84; BMI 45.9
== END 2023-01-29 12:53 | disposition home or self-care (01) ==
PROVIDERS: PCP Internal Medicine; Visit Provider Nurse Practitioner
DX: K29.60 Other gastritis without bleeding (principal); K22.10 Ulcer of esophagus without bleeding; J39.2 Other diseases of pharynx; K59.04 Chronic idiopathic constipation; K21.9 Gastro-esophageal reflux disease without esophagitis; R53.83 Other fatigue; R00.2 Palpitations
CPT/HCPCS: 99213

== ENCOUNTER → 2023-01-29 11:08 | Outpatient (BNVA) | payer OTHER, SELFPAY | PROVIDERS: PCP Internal Medicine; Visit Provider Nurse Practitioner | DX: K29.60 Other gastritis without bleeding (principal); K22.10 Ulcer of esophagus without bleeding; K59.04 Chronic idiopathic constipation; K21.9 Gastro-esophageal reflux disease without esophagitis; J39.2 Other diseases of pharynx; R53.83 Other fatigue; R00.2 Palpitations | CPT/HCPCS: 99212 ==

== ENCOUNTER 2023-04-14 10:43 | Outpatient (AMB) | payer OTHER, SELFPAY ==
[2023-04-14 10:49] VITALS: BP 140/60; PULSE 69; BMI 47.5
--- NOTE | 2023-04-14 10:49 | MHC.OFFVIS ---
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 Contracts Director Required: No Accompanied by: Self / Same As Patient Allergies nirmatrelvir [From Paxlovid (EUA)] Allergy (Verified 01/01/23 11:19) Unknown ritonavir [From Paxlovid (EUA)] Allergy (Verified 01/01/23 11:19) Unknown adhesive Adverse Reaction (Verified 01/01/23 11:19) Rash Erythromycin Allergy (Uncoded 11/07/22 12:29) Rash Latex Allergy (Uncoded 11/07/22 12:29) Rash Medication List - Last Reconciled 04/14/23 by Santo Higginbotham MD cetirizine 10 mg PO DAILY CPAP (CPAP Machine/Device) As directed ibuprofen 600 mg PO Q8H PRN levothyroxine (Synthroid) 112 mcg PO DAILY linaclotide (Linzess) 72 mcg PO QAM ondansetron 4 mg PO Q8H PRN HPI HPI Comments History of Present Illness Details Britt is here for consultation regarding palpitations. She states over the last year or so she gets episodes of heart fluttering at different times. Her description seems suggest either supraventricular ventricular ectopy. She is quite overweight but she believes that it is all because of thyroid issues. Her thyroid medication apparently has been adjusted numerous times and she has either overactive or underactive state. More recently, it has been rather cut back. Because of this, she states she has lot of difficulty in losing weight. Otherwise, she also has obstructive sleep apnea and she uses CPAP at nighttime. Random episodes of chest pain but not clearly exertional. Otherwise, no known cardiac issues like coronary disease, myocardial infarction or cardiomyopathy. [facility] Medical History Sleep apnea GERD (gastroesophageal reflux disease) Hypothyroid History of endometrial biopsy Surgical History H/O colonoscopy H/O hernia repair History of tubal ligation History of section Family History Father No problems noted. Mother No problems noted. Social History Alcohol intake: current Alcohol intake frequency: holidays/special occasions only Patient Tobacco Use Status: Never used Tobacco Review of Systems Const Reports chills, Reports fatigue, Reports fever(s), Reports frequent falls, Reports weakness, Reports weight gain and Reports weight loss ENT Reports dizziness Card Reports chest pain, Reports leg edema, Reports lightheadedness, Reports palpitations, Reports dyspnea, Reports dyspnea on exertion and Reports orthopnea Resp Reports cough, Reports dyspnea and Reports dyspnea on exertion GI Reports bloating and Reports change in bowel habits Musc Reports muscle weakness, Reports numbness and Reports tingling Neuro Reports dizziness, Reports frequent falls, Reports numbness, Reports tingling and Reports weakness Endo Reports fatigue and Reports palpitations Physical Exam Vital Signs: Last Vital Signs Pulse 69 04/14/23 10:49 BP 140/60 H 04/14/23 10:49 BMI result Body Mass Index 47.5 Const General: comfortable and no acute distress Orientation/consciousness: patient oriented x3 HEENT Other: Unremarkable Head: Yes normal to inspection Neck Neck: Yes normal visual inspection Chest Chest palpation & inspection: normal inspection of the chest Resp Auscultation: clear to auscultation bilaterally Cardio Palpation: normal PMI Heart sounds: S1 normal heart sound present, S2 normal heart sound present, no gallops, no murmurs and no rubs GI Palpation (GI): Soft to palpation Back/Spine/Pelvis Other: unremarkable Skin General skin exam: no rashes or lesions noted Neuro General: patient oriented x3 Extrem General: Yes normal to inspection Psych Mental Status: mental status grossly normal Assessment & Plan Assessment & Plan (1) Palpitations: Code(s): R00.2 - Palpitations (2) Right bundle branch block: Code(s): I45.10 - Unspecified right bundle-branch block (3) Morbid obesity: Code(s): E66.01 - Morbid (severe) obesity due to excess calories (4) SVEN (obstructive sleep apnea): Code(s): G47.33 - Obstructive sleep apnea (adult) (pediatric) Plan Recent EKG shows sinus rhythm with right bundle-branch block pattern. Rhythm strips are available shows sinus rhythm only. She might be having either supraventricular or ventricular ectopy based on her description. Less likely other arrhythmias like atrial fibrillation. Strongly believe that her weight and SVEN play a major role. Per patient, unable to lose weight because of ongoing thyroid issues. Discussed about this in great detail. We can start with an echocardiogram and Holter monitor. Based on findings, we can plan further care. Orders: Orders CA echo transthoracic complete Today I45.10 - Unspecified right bundle-branch block, R00.2 - Palpitations ECG 7 day holter monitor Today R00.2 - Palpitations Coding Level of Care Code New Pt Level 3 (85513) Diagnoses Palpitations R00.2 Right bundle branch block I45.10 Morbid obesity E66.01 SVEN (obstructive sleep apnea) G47.33
== END 2023-04-14 11:32 | disposition home or self-care (01) ==
PROVIDERS: PCP Internal Medicine; Visit Provider Internal Medicine
DX: R00.2 Palpitations (principal); I45.10 Unspecified right bundle-branch block; E66.01 Morbid (severe) obesity due to excess calories; G47.33 Obstructive sleep apnea (adult) (pediatric)
CPT/HCPCS: 93010; 99203

== ENCOUNTER → 2023-04-14 10:43 | Outpatient (BNVA) | payer OTHER, SELFPAY | PROVIDERS: PCP Internal Medicine; Visit Provider Internal Medicine | DX: I45.10 Unspecified right bundle-branch block (principal); R00.2 Palpitations; G47.33 Obstructive sleep apnea (adult) (pediatric); E66.01 Morbid (severe) obesity due to excess calories; Z68.42 Body mass index [BMI] 45.0-49.9, adult | CPT/HCPCS: 93005; 99202 ==

== ENCOUNTER → 2023-05-21 12:45 | Outpatient (REF) | payer OTHER, SELFPAY ==
--- NOTE | 2023-05-21 12:48 | HM_ITS ---
Conclusion: 1. Patient was monitored for total period of 6 days and 23 hours 2. Baseline was normal sinus rhythm with average heart of 74 beats per minute 3. No significant arrhythmias or pauses noted 5. Patient marked multiple events, 15 of which correlated with sinus rhythm with some of the other diary events were recorded when leads were disconnected and therefore uninterpretable MTDD
--- NOTE | 2023-05-21 12:48 | CA_ITS ---
Transthoracic Echocardiogram Patient (Last, First, Middle): Britt Montes, Gender: Female Date of : 1980 Age: 42 Procedure Date: 05/21/2023 Procedure Type: Transthoracic Echocardiogram Location: OP Height: 167. cm Weight: 131.54 kg BSA: 2.34 m2 Heart Rate: 71 bpm BP: 122 / 78 mmHg Entry Level Accountant: ENOC Levine MD: Santo Higginbotham MD Custom Harvester: Eber Torres MD Symptoms: R00.2 - Palpitations Study Quality: Fair ECG Rhythm: Sinus Conclusions: - Essentally normal study Findings Left Ventricle Normal left ventricular size, thickness, and systolic function. The visually estimated ejection fraction is between 60-65%. Spectral Doppler is indicative of a normal filling pattern. GLS tracking appears to be erroneous and therefore measurements not reliable. Right Ventricle Normal right ventricular cavity size and systolic function. Atria The left atrium is normal in size. There is no evidence of interatrial shunt. The right atrium is normal in size. Aortic Valve Normal aortic valve structure and function. There is no aortic valve stenosis. There is no aortic valve regurgitation. Mitral Valve Normal mitral valve structure and function. There is trace mitral valve regurgitation. There is no mitral valve stenosis. Pulmonic Valve The pulmonic valve is likely normal. Tricuspid Valve Likely normal tricuspid valve structure and function. Tricuspid regurgitation envelope is inadequate for calculation of right ventricular systolic pressure. Normal right atrial pressure. Great Vessels All visible segments of the aorta are normal in size. The pulmonary artery was not well visualized. Venous The inferior vena cava is normal in size. Pericardium/Pleural There is no evidence of pericardial effusion. Prior Study Comparison No prior study available for comparison. Measurements 2D Linear Measurements IVSd: 0.86 0.6-0.9/0.6-1.0 cm LVIDd: 5.51 3.9-5.3/4.2-5.9 cm LVIDd Index: 2.35 2.4-3.2/2.2-3.1 cm/m2 LVIDs: 3.05 2.0-3.6 cm LVPWd: 0.87 0.7-1.1 cm LA Diam: 4.30 2.7-3.8/3.0-4.0 cm LAIDs Index: 1.84 1.5-2.3 cm/m2 LV Mass: 220.87 67-162/88-224 g LV Mass Index: 94.39 43-95/49-115 g/m2 LVOT Diam: 2.40 3.0+(-)1.3 cm 2D Systolic Function EF 4C: 55.80 >55% EF 2C: 63.80 >55% EF BiP: 59.90 >55% Mitral Valve MV Pk E: 0.88 MV PK A: 0.51 MV Decel Time: 244.00 E/A: 1.70 E'Lateral: 13.60 E'Medial: 11.40 E/E' Med: 7.70 E/E' Lat: 6.50 PHT: 72.00 MVA PHT: 3.06 Decel Ciales: 3.60 Aortic Valve AoV Pk Hasmukh: 1.16 AoV Mn Hasmukh: 0.90 AoV VTI: 0.27 AoV Pk Grad: 5.00 Aov Mn Grad: 4.00 [id number] Cont.VTI: 3.74 LVOT LVOT Pk Hasmukh: 1.06 LVOT Mn Hasmukh: 0.73 LVOT VTI: 0.22 LVOT Pk Grad: 4.00 LVOT Mn Grad: 2.00 LVOT Diam: 2.40 LVOT Area: 4.52 Diastolic Function MV Pk E: 0.88 MV Pk A: 0.51 E/A: 1.70 E'Medial: 11.40 E/E' Med: 7.70 E' Laterial: 13.60 E/E' Lat: 6.50 Right Ventricle TAPSE (mm): 22.80 TVS' Hasmukh: 14.70 Tricuspid Valve TR Pk Hasmukh: 2.21 TR Pk Grad: 20.00 Great Vessels Aorta Sinus of Valsalva: 3.30 2.0-3.5 cm Ao Asc: 3.30 2.1-3.4 cm Pulmonary Valve PV Pk Hasmukh: 1.07 Peak PV Grad: 5.00 Updated in Other Vendor System with Status of Final Eber Torres MD electronically signed on 05/22/2023 2:39:52 PM with status of Final
== END ==
LOC: HO.CARD 12:45
PROVIDERS: PCP Internal Medicine; Visit Provider Internal Medicine
DX: R00.2 Palpitations (principal); I45.10 Unspecified right bundle-branch block
CPT/HCPCS: 93242; 93306

== ENCOUNTER → 2023-05-21 12:48 | Outpatient (BNV) | payer OTHER, SELFPAY | PROVIDERS: PCP Internal Medicine; Visit Provider Internal Medicine Cardiovascular Disease | DX: R00.2 Palpitations (principal) | CPT/HCPCS: 93244; 93306 ==

== ENCOUNTER 2023-06-25 14:56 | Outpatient (AMB) | payer OTHER, SELFPAY ==
--- NOTE | 2023-06-25 15:25 | MHC.OFFVIS ---
Intake Vital Signs 06/25/23 15:26 Height 5 ft 6 in Weight 304 lb 3.806 oz BMI 49.1 BP 114/72 Blood Pressure Location Rt brachial Position Sitting Pulse 74 Pulse Source Pulse Oximeter Intake Visit Reasons: r/s s/p echo/holter hs Single End Sewer Required: No Allergies nirmatrelvir [From Paxlovid (EUA)] Allergy (Verified 06/25/23 15:29) Unknown ritonavir [From Paxlovid (EUA)] Allergy (Verified 06/25/23 15:29) Unknown adhesive Adverse Reaction (Verified 06/25/23 15:29) Rash Erythromycin Allergy (Uncoded 06/25/23 15:29) Rash Latex Allergy (Uncoded 06/25/23 15:29) Rash Medication List - Last Reconciled 06/25/23 by Anitra Kumar, [employer] cetirizine 10 mg PO DAILY CPAP (CPAP Machine/Device) As directed ibuprofen 600 mg PO Q8H PRN levothyroxine (Synthroid) 112 mcg PO DAILY linaclotide (Linzess) 72 mcg PO QAM ondansetron 4 mg PO Q8H PRN HPI r/s s/p echo/holter hs HPI Details Britt is a 42-year-old female with past medical history of morbid obesity, Elsy's thyroiditis, hypothyroidism, right bundle branch block, obstructive sleep apnea with CPAP use who recently reported heart palpitations and underwent to an echocardiogram and Holter monitor and now presents for follow-up. Today she reports that she still can feel heart palpitations. Feels like her heart is speeding up for a few seconds and it makes her cough. This can happen a few times in a row. She has not had any sustained rapid or irregular heart rates. She says when she wore the Holter monitor she was sick with influenza the entire time. She does not feel it was a good representation of her normal heart rates or palpitations. She denies chest discomfort at rest or with activity. No concerning shortness of breath, lightheadedness, presyncope, syncope, PND, orthopnea or edema. Uses CPAP. Concerned about her thyroid and weight. She believes a lot of her palpitations are related to her thyroid levels and medication. [facility] Medical History Sleep apnea GERD (gastroesophageal reflux disease) Hypothyroid History of endometrial biopsy Surgical History H/O colonoscopy H/O hernia repair History of tubal ligation History of section Family History Father No problems noted. Mother No problems noted. Social History Alcohol intake: current Alcohol intake frequency: holidays/special occasions only Patient Tobacco Use Status: Never used Tobacco Review of Systems Const All systems reviewed & are unremarkable except as noted in HPI and below ENT Denies dizziness Card Denies chest pain, Denies chest pain at rest, Denies chest pain with activity, Reports rapid heart rate, Denies pedal edema, Denies edema, Denies leg edema, Denies lightheadedness, Denies palpitations, Denies dyspnea, Reports dyspnea on exertion and Denies orthopnea Resp Denies cough, Denies dyspnea and Reports dyspnea on exertion GI Denies hematochezia and Denies change in stool character Musc Denies abnormal gait, Denies limited range of motion, Denies muscle cramps, Denies muscle weakness, Denies numbness, Denies radiating pain into limb, Denies stiffness and Denies tingling Neuro Denies abnormal gait, Denies dizziness, Denies numbness and Denies tingling Endo Denies palpitations Physical Exam Vital Signs: Last Vital Signs Pulse 74 06/25/23 15:26 BP 114/72 06/25/23 15:26 BMI result Body Mass Index 49.1 Const General: cooperative, healthy appearing, comfortable and no acute distress Orientation/consciousness: patient oriented x3 Neck Neck: Yes normal visual inspection and Yes no JVD Resp Effort & Inspection: normal respiratory effort Auscultation: clear to auscultation bilaterally, no crackles, no rales, no rhonchi and no wheezes Cardio Jugular venous distension: no JVD Rate: regular rate Rhythm: regular rhythm Heart sounds: S1 normal heart sound present, S2 normal heart sound present, no murmurs and no rubs Neuro General: patient oriented x3 Extrem General: Yes normal to inspection, No no pedal edema and No calf tenderness Psych Appearance: grossly normal Mental Status: mental status grossly normal Speech and movement: Normal speech and movement present Assessment & Plan Assessment & Plan (1) Palpitations: Code(s): R00.2 - Palpitations Plan: Reports of heart palpitations which feel like rapid heartbeat for a few seconds. No sustained rapid or irregular rates. No lightheadedness, presyncope, syncope, falls. Recent EKG showing sinus rhythm with right bundle branch block. Echocardiogram done 05/21/2023 was normal study. Holter monitor done 05/21/2023 for 7 days shows sinus rhythm with average heart rate 74, no pauses or significant arrhythmia. Fifteen episodes of symptoms correlated with sinus rhythm. Today she reports that she continues to notice her heart palpitations. It does cause her some concern. She believes that her thyroid may be contributing to this symptom. She also believes that the Holter monitor did not give good representation as she was sick with influenza the entire time. She tells me she has an appointment with the counseling services director and will be having her thyroid levels checked. At this time she will continue to monitor symptoms. She is most likely feeling extrasystoles which was reviewed with her and offered reassurance. If she has ongoing concerns she has been instructed to call this office and a 30 day cardiac event monitor will be ordered. Instructed on reduction in stimulants, caffeinated beverages. Reviewed good rest, exercise, weight loss. Cardiology follow-up as needed. (2) Right bundle branch block: Code(s): I45.10 - Unspecified right bundle-branch block Plan: Noted on EKG. No specific treatment required (3) SVEN (obstructive sleep apnea): Code(s): G47.33 - Obstructive sleep apnea (adult) (pediatric) Plan: Compliant with CPAP (4) Morbid obesity: Code(s): E66.01 - Morbid (severe) obesity due to excess calories Plan: She relates this to her thyroid issues. She has been trying to work on weight loss (5) Elsy's thyroiditis: Code(s): E06.3 - Autoimmune thyroiditis Plan: Follows with endocrinology Plan Time spent on chart review, documentation, interview and assessment Coding Level of Care Code Est Pt Level 4 (19211) Diagnoses Palpitations R00.2 Right bundle branch block I45.10 SVEN (obstructive sleep apnea) G47.33 Morbid obesity E66.01 Elsy's thyroiditis E06.3 Time Spent (min) 28
[2023-06-25 15:26] VITALS: BP 114/72; PULSE 74; BMI 49.1
== END 2023-06-25 16:06 | disposition home or self-care (01) ==
PROVIDERS: PCP Internal Medicine; Visit Provider Nurse Practitioner Family
DX: R00.2 Palpitations (principal); I45.10 Unspecified right bundle-branch block; G47.33 Obstructive sleep apnea (adult) (pediatric); E66.01 Morbid (severe) obesity due to excess calories; E06.3 Autoimmune thyroiditis
CPT/HCPCS: 99214

== ENCOUNTER → 2023-06-25 14:56 | Outpatient (BNVA) | payer OTHER, SELFPAY | PROVIDERS: PCP Internal Medicine; Visit Provider Nurse Practitioner Family | DX: R00.2 Palpitations (principal); I45.10 Unspecified right bundle-branch block | CPT/HCPCS: 99212 ==

== ENCOUNTER 2023-07-30 11:39 | Outpatient (REF) | payer OTHER, SELFPAY ==
--- NOTE | ~2023-07-30 | XR_ITS ---
EXAMINATION: XR LUMBOSACRAL SPINE CLINICAL INFORMATION: Dorsalgia, unspecified COMPARISON: Same-day thoracic spine TECHNIQUE: Three views of the lumbosacral spine. FINDINGS: There is a transitional thoracolumbar vertebral body at L1 which contains a small riblet on the right and a normal transverse process on the left. The height of the lumbar vertebral bodies is well-maintained. There is no disc space narrowing. There is multilevel degenerative facet joint disease, marked at L4-L5 and L5-S1. There is small anterior marginal osteophytes at all lumbar levels. There is no spondylolisthesis. Multiple metallic coils project over the lower abdomen/upper pelvis. XR/XR lumbar spine 2-3V IMPRESSION: Multilevel degenerative facet joint disease, marked at L4-L5 and L5-S1.
--- NOTE | ~2023-07-30 | XR_ITS ---
EXAMINATION: XR THORACOLUMBAR SPINE CLINICAL INFORMATION: Dorsalgia, unspecified COMPARISON: Same-day lumbar spine TECHNIQUE: AP and lateral views of the thoracic spine. FINDINGS: The vertebral alignment is normal. No intrinsic bony abnormality. There is multilevel degenerative disc disease. There is marginal osteophyte formation. The posterior elements are normal. No fracture or subluxation. The surrounding prevertebral soft tissues are unremarkable. Incidental note is made of straightening of the usual cervical lordosis which can be seen with muscle spasm or be due to patient positioning. XR/XR thoracic spine 2V IMPRESSION: 1. Multilevel degenerative disc disease in the thoracic spine. 2. Straightening of the usual cervical lordosis which can be seen with muscle spasm or be due to patient positioning.
== END 2023-07-30 11:40 | disposition home or self-care (01) ==
LOC: HO.LAB 11:39
PROVIDERS: PCP Student in an Organized Health Care Education/Training Program; Visit Provider Nurse Practitioner
DX: M54.9 Dorsalgia, unspecified (principal); R10.10 Upper abdominal pain, unspecified; K29.60 Other gastritis without bleeding; K22.10 Ulcer of esophagus without bleeding
CPT/HCPCS: 72070; 72100; 99212

== ENCOUNTER 2023-07-30 11:39 | Outpatient (AMB) | payer OTHER, SELFPAY ==
--- NOTE | 2023-07-30 11:44 | A.OFFVIS_ITS ---
Vital Signs 07/30/23 11:48 Height 5 ft 6 in Weight 307 lb 5.19 oz BMI 49.6 BP 124/61 Blood Pressure Location Lt brachial Position Sitting Pulse 79 Intake Visit Reasons: follow up Intake Note: Patient present to in office visit today in follow up of CIC. CC: Patient reports that she was doing well but ran out of her medication and for about 3 weeks she has been having more acid reflux. She c/o feeling very tired all the time as well. Lately she started walking a friend's dog and is having lower back discomfort and pain with radiation to her upper back and getting very fatigued. [employer] Ro[employer]er Required: No Accompanied by: Self / Same As Patient Allergies nirmatrelvir [From Paxlovid (EUA)] Allergy (Verified 07/30/23 11:52) Unknown ritonavir [From Paxlovid (EUA)] Allergy (Verified 07/30/23 11:52) Unknown adhesive Adverse Reaction (Verified 07/30/23 11:52) Rash Erythromycin Allergy (Uncoded 06/25/23 15:29) Rash Latex Allergy (Uncoded 06/25/23 15:29) Rash HPI HPI follow up: Details: Assessment & Plan (1) Erosive gastritis: Code(s): K29.60 - Other gastritis without bleeding (2) Erosive esophagitis: Code(s): K22.10 - Ulcer of esophagus without bleeding (3) Throat irritation: Comment: Post procedure after EGD Code(s): J39.2 - Other diseases of pharynx (4) Chronic idiopathic constipation: Code(s): K59.04 - Chronic idiopathic constipation (5) GERD (gastroesophageal reflux disease): Comment: Barium swallow 06/2022 [facility] IMPRESSION Small sliding type 1 hiatal hernia. Code(s): K21.9 - Gastro-esophageal reflux disease without esophagitis (6) Fatigue: Code(s): R53.83 - Other fatigue (7) Palpitations: Code(s): R00.2 - Palpitations Plan I printed labs for her to take to her PCP. She says that her thyroid med was lowered about a month ago, this may be an ongoing process with her PCP. She will be seeing cardiology soon for palpitations. Her vit D is mildly low and I recommend she take and OTC vit D supplement. She continues to have brain fog. SHe also questions ADD because she was in a program for mild ADD and dyslexia in . She says she is ravenously hungry lately despite how much she eats. She has a lot of borborygmus as well. She also is c/o leg cramping in the legs, arms and flank and neck. She will have breakthough GERD if she forgets her esomeprazole or if she has hot chocolate or pasta with sauce. She uses Linzess and miralax prn. I defer any further tx for he more general sx to her PCP. I printed labs for her to take to them. Return office visit in 6 months. TODAY'S VISIT She continues on esomeprazole, Linzess and Miralax prn. She ran out of her meds, it seems her 6 month appt was scheduled with the wrong provider and the note may have been sent for refill to the wrong provider. I refilled all today. She has had more severe GERD and dyspepsia, and her general puffiness even in her extremities is worse over kayla past couple of weeks. She has been LIVING on TUMS. She has been walking more and has been having pain in her back, in the lumbar area that feels like my back splits wide open then pain goes up my spine like a zip lock bag. She also has pain that starts on the left side back and radiates to her ribs. She is worried about GB disease as all of her family at her age (although her pain is on the opposite side) so I think an US will be prudent. She is told that her score for Hashimotos is very high and she continues to be frustrated about her weight. She had an appt to see Wt mgmt but it had to be put off for another month by the practice. 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 Given her BMI she would be a good candidate for a trial of Wegovy, but I know that the starting doses are on backorder right now. She can only see her die equipment operator q6mos and this seems like slow progress to address her thyroid fxn which is not yet too low. We discuss progesterone cream. This is an zipg-tdn-[id number] remedy that sometimes is helpful for menopause symptoms. I also give her referred all weight management department as she was seeing a different hospital system. I am also getting x-rays of her lumbar spine to see if I can point her in the right direction. Return office visit in 4 weeks. At this time will evaluate how she is doing when she has all of her medications back on board and go over any test results. [facility] Medical History (Updated 07/30/23 @ 13:11 by CHOCO Teran) Hypothyroid Nausea and vomiting Vaginal marian Sleep apnea GERD (gastroesophageal reflux disease) Hypothyroid History of endometrial biopsy Surgical History H/O colonoscopy H/O hernia repair History of tubal ligation History of section Family History Father No problems noted. Mother No problems noted. Social History Alcohol intake: current Alcohol intake frequency: holidays/special occasions only Patient Tobacco Use Status: Never used Tobacco Review of Systems Const Reports fatigue, Denies fever(s), Denies night sweats, Denies poor appetite, Reports weight gain and Denies weight loss Eyes Details: Glasses Reports requires corrective lenses ENT Reports Normal hearing present, Denies dental pain, Denies dysphagia, Denies hearing loss, Denies mouth pain, Denies odynophagia, Denies throat swelling, Denies tongue swelling and Reports other (Dentition adequate) Card Reports no additional complaints Resp Reports no additional complaints GI Details: Denies abdominal pain, Denies melena, Reports bloating, Denies hematochezia, Reports constipation, Denies GI cramping, Denies dysphagia, Denies excessive flatus, Denies early satiety, Reports heartburn, Denies diarrhea, Denies nausea, Denies odynophagia, Denies vomiting and Denies hematemesis Musc Reports back pain and Reports stiffness Skin/Breast Denies pruritus, Denies lesions, Denies rash and Denies jaundice Neuro Reports Normal hearing present and Denies Abnormal speech present Psych Details: Brain fog feeling Reports anxiety and Reports panic attacks Endo Reports fatigue Aller/Immun Denies throat swelling and Denies tongue swelling Physical Exam Vital Signs: Last Vital Signs Pulse 79 07/30/23 11:48 BP 124/61 07/30/23 11:48 BMI result Body Mass Index 49.6 Const General: cooperative, no acute distress, well developed and well groomed Nutritional Appearance: well nourished and obese morbidly obese Orientation/consciousness: oriented to person, oriented to place and oriented to time Limitations: No language barrier HEENT Head: Yes normocephalic and Yes atraumatic Eyes General: appearance normal, both eyes and all related structures Pupils: Equal, round and reactive pupils present Neck Neck: Yes normal visual inspection and Yes no lymphadenopathy Thyroid: Thyroid normal Resp Effort & Inspection: normal respiratory effort and able to speak in complete sentences Auscultation: clear to auscultation bilaterally Cardio Rate: regular rate Rhythm: regular rhythm Heart sounds: Normal, physiologic split S2 sound present Peripheral pulses: radial pulses present and posterior tibial pulses present GI Inspection: No distended, Yes Abdominal panniculus present and Yes obesity Palpation (GI): Soft to palpation, Tenderness to palpation present (GI) in the LUQ, no guarding, not rigid and No hepatosplenomegaly present Percussion: Yes normal to percussion Auscultation: normal bowel sounds Rectal Exam - Female: deferred General: Yes CVA tenderness Back/Spine/Pelvis Back: CVA tenderness Skin General skin exam: no rashes or lesions noted, turgor normal, skin not dry, no jaundice, No spider nevi and no striae Rashes: no rashes Nails: normal Neuro General: oriented to person, oriented to place and oriented to time Cranial nerves: Yes Equal, round and reactive pupils present and Yes Normal hearing present Speech: No Abnormal speech present Extrem General: Yes normal to inspection, No clubbing, No cyanosis and No edema Psych Appearance: grossly normal and well kempt Mental Status: mental status grossly normal Speech and movement: Normal speech and movement present Affect: Labile affect present, Sad affect present and Anxious affect present Attitude: cooperative Thought process: Normal thought process present and not confabulating Thought content: Normal thought content present Insight: Limited insight present (Psych) Judgement: Limited judgement present (Psych) Assessment & Plan Assessment & Plan (1) Erosive gastritis: Code(s): K29.60 - Other gastritis without bleeding Category: Medical (2) Erosive esophagitis: Code(s): K22.10 - Ulcer of esophagus without bleeding Category: Medical (3) Irritable bowel syndrome with both constipation and diarrhea: Code(s): K58.2 - Mixed irritable bowel syndrome Category: Medical (4) GERD (gastroesophageal reflux disease): Comment: Barium swallow 06/2022 [facility] IMPRESSION Small sliding type 1 hiatal hernia. Code(s): K21.9 - Gastro-esophageal reflux disease without esophagitis Category: Medical (5) Back pain: Code(s): M54.9 - Dorsalgia, unspecified Category: Medical (6) Upper abdominal pain: Code(s): R10.10 - Upper abdominal pain, unspecified Category: Medical (7) Morbid obesity: Code(s): E66.01 - Morbid (severe) obesity due to excess calories Category: Medical Plan She continues on esomeprazole, Linzess and Miralax prn. She ran out of her meds, it seems her 6 month appt was scheduled with the wrong provider and the note may have been sent for refill to the wrong provider. I refilled all today. She has had more severe GERD and dyspepsia, and her general puffiness even in her extremities is worse over kayla past couple of weeks. She has been LIVING on TUMS. She has been walking more and has been having pain in her back, in the lumbar area that feels like my back splits wide open then pain goes up my spine like a zip lock bag. She also has pain that starts on the left side back and radiates to her ribs. She is worried about GB disease as all of her family at her age (although her pain is on the opposite side) so I think an US will be prudent. She is told that her score for Hashimotos is very high and she continues to be frustrated about her weight. She had an appt to see Wt mgmt but it had to be put off for another month by the practice. 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 Given her BMI she would be a good candidate for a trial of Wegovy, but I know that the starting doses are on backorder right now. She can only see her die equipment operator q6mos and this seems like slow progress to address her thyroid fxn which is not yet too low. We discuss progesterone cream. This is an mrye-rrx-lzdgsln remedy that s ometimes is helpful for menopause symptoms. I also give her referred all weight management department as she was seeing a different hospital system. I am also getting x-rays of her lumbar spine to see if I can point her in the right direction. Return office visit in 4 weeks. At this time will evaluate how she is doing when she has all of her medications back on board and go over any test results. Orders: Orders XR thoracic spine 2V Today M54.9 - Dorsalgia, unspecified, R10.10 - Upper abdominal pain, unspecified XR lumbar spine 2-3V Today M54.9 - Dorsalgia, unspecified, R10.10 - Upper abdominal pain, unspecified US abdomen complete Today M54.9 - Dorsalgia, unspecified, R10.10 - Upper abdominal pain, unspecified Referrals Medical Weight Management Referral E66.01 - Morbid (severe) obesity due to excess calories Medications: New esomeprazole magnesium 40 mg PO DAILY 30 caps 6RF polyethylene glycol 3350 (Miralax) 17 grams PO DAILY PRN 510 grams 3RF constipation 30 days Refilled linaclotide (Linzess) 72 mcg PO QAM 30 caps 6RF K59.04 - Chronic idiopathic constipation Coding Level of Care Code Est Pt Level 4 (97361) Diagnoses Erosive gastritis K29.60 Erosive esophagitis K22.10 Irritable bowel syndrome with both constipation and diarrhea K58.2 GERD (gastroesophageal reflux disease) K21.9 Back pain M54.9 Upper abdominal pain R10.10 Morbid obesity E66.01 Time Spent (min) 37
[2023-07-30 11:48] VITALS: BP 124/61; PULSE 79; BMI 49.6
== END 2023-07-30 12:32 | disposition home or self-care (01) ==
PROVIDERS: PCP Internal Medicine; Visit Provider Nurse Practitioner
DX: K29.60 Other gastritis without bleeding (principal); K22.10 Ulcer of esophagus without bleeding; K58.2 Mixed irritable bowel syndrome; K21.9 Gastro-esophageal reflux disease without esophagitis; M54.9 Dorsalgia, unspecified; R10.10 Upper abdominal pain, unspecified; E66.01 Morbid (severe) obesity due to excess calories
CPT/HCPCS: 99214

== ENCOUNTER 2023-08-27 12:47 | Outpatient (AMB) | payer OTHER, SELFPAY ==
--- NOTE | 2023-08-27 12:48 | A.OFFVIS_ITS ---
Vital Signs 08/27/23 12:50 Height 5 ft 6 in Weight 306 lb 7.08 oz BMI 49.5 BP 114/74 Blood Pressure Location Lt radial Position Sitting Pulse 86 Intake Visit Reasons: 4 week follow up Allergies nirmatrelvir [From Paxlovid (EUA)] Allergy (Verified 08/27/23 12:51) Unknown ritonavir [From Paxlovid (EUA)] Allergy (Verified 08/27/23 12:51) Unknown adhesive Adverse Reaction (Verified 08/27/23 12:51) Rash Erythromycin Allergy (Uncoded 08/27/23 12:51) Rash Latex Allergy (Uncoded 08/27/23 12:51) Rash HPI HPI 4 week follow up: Details: Assessment & Plan (1) Erosive gastritis: Code(s): K29.60 - Other gastritis without bleeding Category: Medical (2) Erosive esophagitis: Code(s): K22.10 - Ulcer of esophagus without bleeding Category: Medical (3) Irritable bowel syndrome with both constipation and diarrhea: Code(s): K58.2 - Mixed irritable bowel syndrome Category: Medical (4) GERD (gastroesophageal reflux disease): Comment: Barium swallow 06/2022 [facility] IMPRESSION Small sliding type 1 hiatal hernia. Code(s): K21.9 - Gastro-esophageal reflux disease without esophagitis Category: Medical (5) Back pain: Code(s): M54.9 - Dorsalgia, unspecified Category: Medical (6) Upper abdominal pain: Code(s): R10.10 - Upper abdominal pain, unspecified Category: Medical (7) Morbid obesity: Code(s): E66.01 - Morbid (severe) obesity due to excess calories Category: Medical Plan She continues on esomeprazole, Linzess and Miralax prn. She ran out of her meds, it seems her 6 month appt was scheduled with the wrong provider and the note may have been sent for refill to the wrong provider. I refilled all today. She has had more severe GERD and dyspepsia, and her general puffiness even in her extremities is worse over kayla past couple of weeks. She has been LIVING on TUMS. She has been walking more and has been having pain in her back, in the lumbar area that feels like my back splits wide open then pain goes up my spine like a zip lock bag. She also has pain that starts on the left side back and radiates to her ribs. She is worried about GB disease as all of her family at her age (although her pain is on the opposite side) so I think an US will be prudent. She is told that her score for Hashimotos is very high and she continues to be frustrated about her weight. She had an appt to see Wt mgmt but it had to be put off for another month by the practice. 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 Given her BMI she would be a good candidate for a trial of Wegovy, but I know that the starting doses are on backorder right now. She can only see her value stream coach q6mos and this seems like slow progress to address her thyroid fxn which is not yet too low. We discuss progesterone cream. This is an gewg-orp-mkeoleb remedy that sometimes is helpful for menopause symptoms. I also give her referred all weight management department as she was seeing a different hospital system. I am also getting x-rays of her lumbar spine to see if I can point her in the right direction. Return office visit in 4 weeks. At this time will evaluate how she is doing when she has all of her medications back on board and go over any test results. Orders: Orders XR thoracic spine 2V Today M54.9 - Dorsalgia, unspecified, R10.10 - Upper abdominal pain, unspecified XR lumbar spine 2-3V Today M54.9 - Dorsalgia, unspecified, R10.10 - Upper abdominal pain, unspecified US abdomen complete Today M54.9 - Dorsalgia, unspecified, R10.10 - Upper abdominal pain, unspecified Referrals Medical Weight Management Referral E66.01 - Morbid (severe) obesity due to e xcess calories Medications: New esomeprazole magnesium 40 mg PO DAILY 30 caps 6RF polyethylene glycol 3350 (Miralax) 17 grams PO DAILY PRN 510 grams 3RF constipation 30 days Refilled linaclotide (Linzess) 72 mcg PO QAM 30 caps 6RF K59.04 - Chronic idiopathic constipation X-RAY THORACIC AND LUMBAR SPINES 08/06/23 FINDINGS: The vertebral alignment is normal. No intrinsic bony abnormality. There is multilevel degenerative disc disease. There is marginal osteophyte formation. The posterior elements are normal. No fracture or subluxation. The surrounding prevertebral soft tissues are unremarkable. Incidental note is made of straightening of the usual cervical lordosis which can be seen with muscle spasm or be due to patient positioning. XR/XR thoracic spine 2V IMPRESSION: 1. Multilevel degenerative disc disease in the thoracic spine. 2. Straightening of the usual cervical lordosis which can be seen with muscle spasm or be due to patient positioning. FINDINGS: There is a transitional thoracolumbar vertebral body at L1 which contains a small riblet on the right and a normal transverse process on the left. The height of the lumbar vertebral bodies is well-maintained. There is no disc space narrowing. There is multilevel degenerative facet joint disease, marked at L4-L5 and L5-S1. There is small anterior marginal osteophytes at all lumbar levels. There is no spondylolisthesis. Multiple metallic coils project over the lower abdomen/upper pelvis. XR/XR lumbar spine 2-3V IMPRESSION: Multilevel degenerative facet joint disease, marked at L4-L5 and L5-S1. ULTRASOUND OF THE ABDOMEN TODAY'S VISIT ? Spinal stimulator - she denies but she has a mesh for hernia repair Refer to pain mgmt. OA of thoracic spine, having shock like feeling inner abd. Geenralized swelling with myalgias, arthralgias, rash comes an dgoes. Ordering inflamm tests etc. She thinks cantelope and pasts cause itching. GERD is better wtih nexium, still IBS but using Linzess when needed. Pain in skin and over entire body. GI sx are overall better. ROV 5 weeks. [facility] Medical History Hypothyroid Nausea and vomiting Vaginal marian Sleep apnea GERD (gastroesophageal reflux disease) Hypothyroid History of endometrial biopsy Surgical History H/O colonoscopy H/O hernia repair History of tubal ligation History of section Family History Father No problems noted. Mother No problems noted. Social History Alcohol intake: current Alcohol intake frequency: holidays/special occasions only Patient Tobacco Use Status: Never used Tobacco Review of Systems Const Denies fatigue, Denies fever(s), Denies night sweats, Denies poor appetite and Denies weight loss Eyes Details: glasses Reports requires corrective lenses ENT Reports Normal hearing present, Denies dental pain, Denies dysphagia, Denies hearing loss, Denies mouth pain, Reports neck pain, Denies odynophagia, Denies throat swelling, Denies tongue swelling and Reports other (Dentition adequate) Card Reports no additional complaints Resp Reports no additional complaints GI Details: Denies abdominal pain, Denies melena, Denies bloating, Denies hematochezia, Reports constipation, Denies GI cramping, Denies dysphagia, Denies excessive flatus, Denies early satiety, Reports heartburn, Denies diarrhea, Denies nausea, Denies odynophagia, Denies vomiting and Denies hematemesis Musc Reports back pain, Reports myalgias, Reports arthralgias, Reports neck pain and Reports stiffness Skin/Breast Denies pruritus, Denies lesions, Denies rash, Reports skin pain and Denies jaundice Neuro Reports Normal hearing present, Denies Abnormal speech present and Reports paresthesias Endo Denies fatigue Aller/Immun Denies throat swelling and Denies tongue swelling Physical Exam Vital Signs: Last Vital Signs Pulse 86 08/27/23 12:50 BP 114/74 08/27/23 12:50 BMI result Body Mass Index 49.5 Const General: cooperative, no acute distress, well developed and well groomed Nutritional Appearance: well nourished and obese morbidly obese Orientation/consciousness: oriented to person, oriented to place and oriented to time Limitations: No language barrier HEENT Head: Yes normocephalic and Yes atraumatic Eyes General: appearance normal, both eyes and all related structures Pupils: Equal, round and reactive pupils present Neck Neck: Yes normal visual inspection and Yes no lymphadenopathy Thyroid: Thyroid normal Resp Effort & Inspection: normal respiratory effort and able to speak in complete sentences Auscultation: clear to auscultation bilaterally Cardio Rate: regular rate Rhythm: regular rhythm Heart sounds: Normal, physiologic split S2 sound present Peripheral pulses: radial pulses present and posterior tibial pulses present GI Inspection: No distended, Yes Abdominal panniculus present and Yes obesity Palpation (GI): Soft to palpation, nontender, no guarding, not rigid and No hepatosplenomegaly present Percussion: Yes normal to percussion Auscultation: normal bowel sounds Rectal Exam - Female: deferred Skin General skin exam: no rashes or lesions noted, turgor normal, skin not dry, no jaundice, No spider nevi and no striae Rashes: no rashes Nails: normal Neuro General: oriented to person, oriented to place and oriented to time Cranial nerves: Yes Equal, round and reactive pupils present and Yes Normal hearing present Speech: No Abnormal speech present Extrem General: Yes normal to inspection, No clubbing, No cyanosis and No edema Psych Appearance: grossly normal and well kempt Mental Status: mental status grossly normal Speech and movement: Normal speech and movement present Affect: normal affect Attitude: cooperative Thought process: Normal thought process present and not confabulating Thought content: Normal thought content present Insight: Limited insight present (Psych) Judgement: Limited judgement present (Psych) Results Reviewed Results Reviewed: X-RAY THORACIC AND LUMBAR SPINES 08/06/23 FINDINGS: The vertebral alignment is normal. No intrinsic bony abnormality. There is multilevel degenerative disc disease. There is marginal osteophyte formation. The posterior elements are normal. No fracture or subluxation. The surrounding prevertebral soft tissues are unremarkable. Incidental note is made of straightening of the usual cervical lordosis which can be seen with muscle spasm or be due to patient positioning. XR/XR thoracic spine 2V IMPRESSION: 1. Multilevel degenerative disc disease in the thoracic spine. 2. Straightening of the usual cervical lordosis which can be seen with muscle spasm or be due to patient positioning. FINDINGS: There is a transitional thoracolumbar vertebral body at L1 which contains a small riblet on the right and a normal transverse process on the left. The height of the lumbar vertebral bodies is well-maintained. There is no disc space narrowing. There is multilevel degenerative facet joint disease, marked at L4-L5 and L5-S1. There is small anterior marginal osteophytes at all lumbar levels. There is no spondylolisthesis. Multiple metallic coils project over the lower abdomen/upper pelvis. XR/XR lumbar spine 2-3V IMPRESSION: Multilevel degenerative facet joint disease, marked at L4-L5 and L5-S1. Assessment & Plan Assessment & Plan (1) Erosive esophagitis: Code(s): K22.10 - Ulcer of esophagus without bleeding Category: Medical (2) Erosive gastritis: Code(s): K29.60 - Other gastritis without bleeding Category: Medical (3) Upper abdominal pain: Code(s): R10.10 - Upper abdominal pain, unspecified Category: Medical (4) Back pain: Code(s): M54.9 - Dorsalgia, unspecified Category: Medical (5) Irritable bowel syndrome with both constipation and diarrhea: Code(s): K58.2 - Mixed irritable bowel syndrome Category: Medical (6) GERD (gastroesophageal reflux disease): Comment: Barium swallow 06/2022 [facility] IMPRESSION Small sliding type 1 hiatal hernia. Code(s): K21.9 - Gastro-esophageal reflux disease without esophagitis Category: Medical (7) Edema: Code(s): R60.9 - Edema, unspecified Category: Medical (8) Rash: Code(s): R21 - Rash and other nonspecific skin eruption Category: Medical (9) Myalgia: Code(s): M79.10 - Myalgia, unspecified site Category: Medical (10) Thoracic radiculopathy due to degenerative joint disease of spine: Code(s): M47.24 - Other spondylosis with radiculopathy, thoracic region Category: Medical (11) Morbid obesity: Code(s): E66.01 - Morbid (severe) obesity due to excess calories Category: Medical Plan ? Spinal stimulator - she denies but she has a mesh for hernia repair Refer to pain mgmt. OA of thoracic spine, having shock like feeling inner abd. Geenralized swelling with myalgias, arthralgias, rash comes an dgoes. Ordering inflamm tests etc. She thinks cantelope and pasts cause itching. GERD is better wtih nexium, still IBS but using Linzess when needed. Pain in skin and over entire body. GI sx are overall better. ROV 5 weeks. Orders: Orders C Reactive Protein 08/27/23 R60.9 - Edema, unspecified, R21 - Rash and other nonspecific skin eruption, M79.10 - Myalgia, unspecified site RICO Reflex Titer and Pattern 08/27/23 R60.9 - Edema, unspecified, R21 - Rash and other nonspecific skin eruption, M79.10 - Myalgia, unspecified site Rheumatoid Factor 08/27/23 R60.9 - Edema, unspecified, R21 - Rash and other nonspecific skin eruption, M79.10 - Myalgia, unspecified site Cyclic Citrullinated Peptide 08/27/23 R60.9 - Edema, unspecified, R21 - Rash and other nonspecific skin eruption, M79.10 - Myalgia, unspecified site Lyme IgG/IgM w/reflex to WB 08/27/23 R21 - Rash and other nonspecific skin eruption, M79.10 - Myalgia, unspecified site Liver Panel 08/27/23 R21 - Rash and other nonspecific skin eruption, E66.01 - Morbid (severe) obesity due to excess calories Erythrocyte Sedimentation Rate 08/27/23 R60.9 - Edema, unspecified, R21 - Rash and other nonspecific skin eruption, M79.10 - Myalgia, unspecified site B Type Natriuretic Peptide 08/27/23 R60.9 - Edema, unspecified, R21 - Rash and other nonspecific skin eruption, M79.10 - Myalgia, unspecified site Referrals Pain Management Referral M47.24 - Other spondylosis with radiculopathy, thoracic region Coding Level of Care Code Est Pt Level 4 (86804) Diagnoses Erosive esophagitis K22.10 Erosive gastritis K29.60 Upper abdominal pain R10.10 Back pain M54.9 Irritable bowel syndrome with both constipation and diarrhea K58.2 GERD (gastroesophageal reflux disease) K21.9 Edema R60.9 Rash R21 Myalgia M79.10 Thoracic radiculopathy due to degenerative joint disease of spine M47.24 Morbid obesity E66.01
--- NOTE | 2023-08-27 12:48 | MHC.OFFVIS ---
Vital Signs 08/27/23 12:50 Height 5 ft 6 in Weight 306 lb 7.08 oz BMI 49.5 BP 114/74 Blood Pressure Location Lt radial Position Sitting Pulse 86 Intake Visit Reasons: 4 week follow up Intake Note: Britt presents in the office as a 4 week follow up CC: She states that her insurance may not cover synthroid so she is unsure what is going to happen with that. She states that she is bloating again and having all the same symptoms as before. She has headaches and feels like she is retaining water. Swelling all over her body. 2 days since she last saw you she has felt okay but every other day she has felt bad. Allergies nirmatrelvir [From Paxlovid (EUA)] Allergy (Verified 08/27/23 12:51) Unknown ritonavir [From Paxlovid (EUA)] Allergy (Verified 08/27/23 12:51) Unknown adhesive Adverse Reaction (Verified 08/27/23 12:51) Rash Erythromycin Allergy (Uncoded 08/27/23 12:51) Rash Latex Allergy (Uncoded 08/27/23 12:51) Rash PFSH Medical History Hypothyroid Nausea and vomiting Vaginal marian Sleep apnea GERD (gastroesophageal reflux disease) Hypothyroid History of endometrial biopsy Surgical History H/O colonoscopy H/O hernia repair History of tubal ligation History of section Family History Father No problems noted. Mother No problems noted. Social History Alcohol intake: current Alcohol intake frequency: holidays/special occasions only Patient Tobacco Use Status: Never used Tobacco Coding
[2023-08-27 12:50] VITALS: BP 114/74; PULSE 86; BMI 49.5
== END 2023-08-27 13:38 | disposition home or self-care (01) ==
PROVIDERS: PCP Internal Medicine; Visit Provider Nurse Practitioner
DX: K22.10 Ulcer of esophagus without bleeding (principal); K29.60 Other gastritis without bleeding; R10.10 Upper abdominal pain, unspecified; M54.9 Dorsalgia, unspecified; K58.2 Mixed irritable bowel syndrome; K21.9 Gastro-esophageal reflux disease without esophagitis; R60.9 Edema, unspecified; R21 Rash and other nonspecific skin eruption; M79.10 Myalgia, unspecified site; M47.24 Other spondylosis with radiculopathy, thoracic region; E66.01 Morbid (severe) obesity due to excess calories
CPT/HCPCS: 99214

== ENCOUNTER 2023-08-27 12:47 | Outpatient (REF) | payer OTHER, SELFPAY ==
[2023-08-27 15:32] LABS: Erythrocyte Sedimentation Rate 3 MM/HR (0-20)
[2023-08-27 15:37] LABS: Alanine Aminotransferase 18 U/L (0-31); Alkaline Phosphatase 64 U/L (39-117); Aspartate Amino Transferase 20 U/L (5-31); Bilirubin Direct 0.2 mg/dL (0.0-0.5); Bilirubin Total 0.5 mg/dL (0.0-1.0); C Reactive Protein 0.62 mg/dL (< or = 0.50); Total Protein 6.8 g/dL (6.5-8.0)
[2023-08-27 15:42] LABS: B Type Natriuretic Peptide 13 pg/mL (<100)
[2023-08-27 15:43] LABS: Rheumatoid Factor < 13.0 IU/mL (<15.0)
[2023-08-28 11:43] LABS: Lyme Abs Screen <0.90 index
[2023-08-29 18:48] LABS: Anti Nuclear Antibody Screen NEGATIVE (NEGATIVE)
[2023-09-01 19:04] LABS: Cyclic Citrullinated Peptide <16 UNITS
== END 2023-08-27 12:48 | disposition home or self-care (01) ==
LOC: HO.LAB 12:47
PROVIDERS: PCP Internal Medicine; Visit Provider Nurse Practitioner
DX: K29.60 Other gastritis without bleeding (principal); K58.2 Mixed irritable bowel syndrome; K22.10 Ulcer of esophagus without bleeding; M54.9 Dorsalgia, unspecified; M79.10 Myalgia, unspecified site; M47.24 Other spondylosis with radiculopathy, thoracic region; R21 Rash and other nonspecific skin eruption; R60.9 Edema, unspecified; K21.9 Gastro-esophageal reflux disease without esophagitis; R10.10 Upper abdominal pain, unspecified; E66.01 Morbid (severe) obesity due to excess calories
CPT/HCPCS: 36415; 80076; 83880; 85652; 86038; 86140; 86200; 86431; 86617; 86618; 99212

== ENCOUNTER 2023-10-02 10:43 | Outpatient (AMB) | payer OTHER, SELFPAY ==
--- NOTE | 2023-10-02 10:46 | MHC.OFFVIS ---
Vital Signs 10/02/23 10:55 Height 5 ft 6 in Weight 310 lb 6 oz BMI 50.1 BP 138/84 Blood Pressure Location Rt brachial Position Sitting Pulse 72 Pulse Source Pulse Oximeter Pulse Oximetry (%) 99 Oxygen Delivery Method Room Air Intake Visit Reasons: spondylosis with radiculopathy, thoracic region Intake Note: Pain today 4/10 Search Engine Optimization Consultant Required: No Accompanied by: Self / Same As Patient Allergies nirmatrelvir [From Paxlovid (EUA)] Allergy (Verified 10/02/23 10:55) Unknown ritonavir [From Paxlovid (EUA)] Allergy (Verified 10/02/23 10:55) Unknown adhesive Adverse Reaction (Verified 10/02/23 10:55) Rash Erythromycin Allergy (Uncoded 08/27/23 12:51) Rash Latex Allergy (Uncoded 08/27/23 12:51) Rash HPI Comments Details: Britt is a very pleasant 43-year-old female who presents to the office today for evaluation and management of her chronic lower back pain Patient reports that she has been suffering with this pain for twenty years. Denies injury, fall or accident. Attributes her pain to being very athletic, dancing and playing many sports as a child. Pain upper, middle and lower back. Pain today rated as a 4/10, constant and worse during the day. She has attempted physical therapy multiple times, most recently was a couple years ago. States any time she is tried physical therapy she has not found relief and developed pains in other areas Did chiropractor 3 years ago, found relief with this but states it was costing her 60 dollars the session which she was unable to afford She has found much relief with massage, is unsure if insurance currently covers it Patient underwent injections at [facility] and [facility] many years ago, states that she passed out both times Currently taking ibuprofen 800 mg with some relief. In terms of muscle damage condition is described as aching, hot, burning, dull, numb Pain is negatively impacting patient's enjoyment of life, general activity, mood, normal work, recreational activities, sleep and walking She has never been evaluated by Rheumatology for her arthritis and polyarthralgias. Recent x-rays were completed, results as per below [facility], [facility] Medical History Hypothyroid Nausea and vomiting Vaginal marian Sleep apnea GERD (gastroesophageal reflux disease) Hypothyroid History of endometrial biopsy Surgical History H/O colonoscopy H/O hernia repair History of tubal ligation History of section Family History Father No problems noted. Mother No problems noted. Social History Alcohol intake: current Alcohol intake frequency: holidays/special occasions only Patient Tobacco Use Status: Never used Tobacco Review of Systems Const All systems reviewed & are unremarkable except as noted in HPI and below Physical Exam Vital Signs: Last Vital Signs Pulse 72 10/02/23 10:55 BP 138/84 10/02/23 10:55 Pulse Ox 99 10/02/23 10:55 Oxygen Delivery Method Room Air 10/02/23 10:55 BMI result Body Mass Index 50.1 General: awake, alert, oriented. Answers questions appropriately. Fully engaged in examination. Skin: warm, dry, intact HEENT: Normocephalic. Hearing intact. Cardiac: External chest normal in appearance. Respiratory: No cough, audible wheezing or stridor. Abdomen: without gross distension. MS: No obvious swelling or deformities. Able to stand on bilateral tiptoes and bilateral heels.? Able to transition from sit to stand unassisted. Ambulates with bilaterally normal heel strike and toe off Diffusely tender upper middle and lower musculature of the back FITZ negative bilaterally Gaenslen negative bilaterally Thigh thrust negative bilaterally SLR negative bilaterally Full lumbar range of motion Neurological: Oriented to person, place, time and situation. Thought process intact. No gait abnormalities appreciated. Psychiatric: Appropriate mood and affect. Good judgment and insight. Results Reviewed Results Reviewed: 07/30/23 XR/XR lumbar spine 2-3V FINDINGS: There is a transitional thoracolumbar vertebral body at L1 which contains a small riblet on the right and a normal transverse process on the left. The height of the lumbar vertebral bodies is well-maintained. There is no disc space narrowing. There is multilevel degenerative facet joint disease, marked at L4-L5 and L5-S1. There is small anterior marginal osteophytes at all lumbar levels. There is no spondylolisthesis. Multiple metallic coils project over the lower abdomen/upper pelvis. IMPRESSION: XR/XR thoracic spine 2V Multilevel degenerative facet joint disease, marked at L4-L5 and L5-S1. FINDINGS: The vertebral alignment is normal. No intrinsic bony abnormality. There is multilevel degenerative disc disease. There is marginal osteophyte formation. The posterior elements are normal. No fracture or subluxation. The surrounding prevertebral soft tissues are unremarkable. Incidental note is made of straightening of the usual cervical lordosis which can be seen with muscle spasm or be due to patient positioning. IMPRESSION: 1. Multilevel degenerative disc disease in the thoracic spine. 2. Straightening of the usual cervical lordosis which can be seen with muscle spasm or be due to patient positioning. Assessment & Plan Assessment & Plan (1) Myalgia: Code(s): M79.10 - Myalgia, unspecified site Category: Medical (2) Myofascial muscle pain: Code(s): M79.18 - Myalgia, other site Category: Medical (3) Cervical spondylosis: Code(s): M47.812 - Spondylosis without myelopathy or radiculopathy, cervical region Category: Medical (4) Lumbar spondylosis: Code(s): M47.816 - Spondylosis without myelopathy or radiculopathy, lumbar region Category: Medical (5) Osteoarthritis: Code(s): M19.90 - Unspecified osteoarthritis, unspecified site Category: Medical Plan Britt is a very pleasant 43-year-old female who presented to the office today for evaluation and management of her chronic back pain Referral placed to rheumatology for evaluation of her polyarthralgia with osteoarthritis Will trial tizanidine 2 mg p.o. t.i.d. as needed. Patient advised on cautions for use Referral placed for chiropractor Patient will speak with her insurance company to inquire about massage therapy. She was advised to reach out to the office if this is a covered service with the name of in network provider and we will send a referral All questions and concerns were answered, patient agrees with plan Follow up in 2 months, sooner if needed Orders: Referrals Chiropractic Referral M47.812 - Spondylosis without myelopathy or radiculopathy, cervical region, M47.816 - Spondylosis without myelopathy or radiculopathy, lumbar region, M79.10 - Myalgia, unspecified site, M79.18 - Myalgia, other site Rheumatology Referral M19.90 - Unspecified osteoarthritis, unspecified site, M25.50 - Pain in unspecified joint Medications: New tizanidine No driving while taking this medication. May cause drowsiness. Do not take with alcohol or other BAT[employer] F[employer]ER Depressants. 2 mg PO TID PRN 90 tabs 1RF muscle spasticity Coding Level of Care Code New Pt Level 4 (00469) Diagnoses Myalgia M79.10 Myofascial muscle pain M79.18 Cervical spondylosis M47.812 Lumbar spondylosis M47.816 Osteoarthritis M19.90
[2023-10-02 10:55] VITALS: BP 138/84; PULSE 72; O2SAT 99; BMI 50.1
== END 2023-10-02 11:44 | disposition home or self-care (01) ==
PROVIDERS: PCP Internal Medicine; Referring Provider Nurse Practitioner; Visit Provider Registered Nurse Emergency
DX: M79.18 Myalgia, other site (principal); M47.812 Spondylosis without myelopathy or radiculopathy, cervical region; M47.816 Spondylosis without myelopathy or radiculopathy, lumbar region; M19.90 Unspecified osteoarthritis, unspecified site
CPT/HCPCS: 99204

== ENCOUNTER → 2023-10-02 10:43 | Outpatient (BNVA) | payer OTHER, SELFPAY | PROVIDERS: PCP Internal Medicine; Referring Provider Nurse Practitioner; Visit Provider Registered Nurse Emergency | DX: M79.10 Myalgia, unspecified site (principal); M79.18 Myalgia, other site; M47.812 Spondylosis without myelopathy or radiculopathy, cervical region; M47.816 Spondylosis without myelopathy or radiculopathy, lumbar region; M19.90 Unspecified osteoarthritis, unspecified site | CPT/HCPCS: 99202 ==

== ENCOUNTER 2023-12-04 12:50 | Outpatient (AMB) | payer OTHER, SELFPAY ==
[2023-12-04 13:33] VITALS: BP 118/69; PULSE 78; O2SAT 98; BMI 48.4
--- NOTE | 2023-12-04 13:33 | A.OFFVIS_ITS ---
Vital Signs 12/04/23 13:33 Height 5 ft 6 in Weight 300 lb BMI 48.4 BP 118/69 Blood Pressure Location Lt brachial Position Sitting Pulse 78 Pulse Source Pulse Oximeter Pulse Oximetry (%) 98 Oxygen Delivery Method Room Air Intake Visit Reasons: 2 Month Follow Up Allergies nirmatrelvir [From Paxlovid (EUA)] Allergy (Verified 10/02/23 10:55) Unknown ritonavir [From Paxlovid (EUA)] Allergy (Verified 10/02/23 10:55) Unknown adhesive Adverse Reaction (Verified 10/02/23 10:55) Rash Erythromycin Allergy (Uncoded 08/27/23 12:51) Rash Latex Allergy (Uncoded 08/27/23 12:51) Rash HPI Comments Details: Britt presents back to the office today for follow-up chronic pain Since last visit she has been taking Wegovy for weight loss. She has noticed significant improvement in her diffuse inflammation. If this is drastically improved her pain. Pain today is rated as a 4/10 She has not been call to schedule at the chiropractor History of migraines not currently under care of neurologist. Prescribed tizanidine at last visit, she has not taken any this medication as her pain is improved after the Wegovy. Intake visit: Britt is a very pleasant 43-year-old female who presents to the office today for evaluation and management of her chronic lower back pain Patient reports that she has been suffering with this pain for twenty years. Denies injury, fall or accident. Attributes her pain to being very athletic, dancing and playing many sports as a child. Pain upper, middle and lower back. Pain today rated as a 4/10, constant and worse during the day. She has attempted physical therapy multiple times, most recently was a couple years ago. States any time she is tried physical therapy she has not found relief and developed pains in other areas Did chiropractor 3 years ago, found relief with this but states it was costing her 60 dollars the session which she was unable to afford She has found much relief with massage, is unsure if insurance currently covers it Patient underwent injections at [facility] many years ago, states that she passed out both times Currently taking ibuprofen 800 mg with some relief. In terms of muscle damage condition is described as aching, hot, burning, dull, numb Pain is negatively impacting patient's enjoyment of life, general activity, mood, normal work, recreational activities, sleep and walking She has never been evaluated by Rheumatology for her arthritis and polyarthralgias. Recent x-rays were completed, results as per below [facility] Medical History Hypothyroid Nausea and vomiting Vaginal marian Sleep apnea GERD (gastroesophageal reflux disease) Hypothyroid History of endometrial biopsy Surgical History H/O colonoscopy H/O hernia repair History of tubal ligation History of section Family History Father No problems noted. Mother No problems noted. Social History Alcohol intake: current Alcohol intake frequency: holidays/special occasions only Patient Tobacco Use Status: Never used Tobacco Review of Systems Const All systems reviewed & are unremarkable except as noted in HPI and below Physical Exam Vital Signs: Last Vital Signs Pulse 78 12/04/23 13:33 BP 118/69 12/04/23 13:33 Pulse Ox 98 12/04/23 13:33 Oxygen Delivery Method Room Air 12/04/23 13:33 BMI result Body Mass Index 48.4 General: awake, alert, oriented. Answers questions appropriately. Fully engaged in examination. Skin: warm, dry, intact HEENT: Normocephalic. Hearing intact. Cardiac: External chest normal in appearance. Respiratory: No cough, audible wheezing or stridor. Abdomen: without gross distension. MS: No obvious swelling or deformities. Able to stand on bilateral tiptoes and bilateral heels.? Able to transition from sit to stand unassisted. Neurological: Oriented to person, place, time and situation. Thought process intact. No gait abnormalities appreciated. Psychiatric: Appropriate mood and affect. Good judgment and insight. Results Reviewed Results Reviewed: 07/30/23 XR/XR lumbar spine 2-3V FINDINGS: There is a transitional thoracolumbar vertebral body at L1 which contains a small riblet on the right and a normal transverse process on the left. The height of the lumbar vertebral bodies is well-maintained. There is no disc space narrowing. There is multilevel degenerative facet joint disease, marked at L4-L5 and L5-S1. There is small anterior marginal osteophytes at all lumbar levels. There is no spondylolisthesis. Multiple metallic coils project over the lower abdomen/upper pelvis. IMPRESSION: XR/XR thoracic spine 2V Multilevel degenerative facet joint disease, marked at L4-L5 and L5-S1. FINDINGS: The vertebral alignment is normal. No intrinsic bony abnormality. There is multilevel degenerative disc disease. There is marginal osteophyte formation. The posterior elements are normal. No fracture or subluxation. The surrounding prevertebral soft tissues are unremarkable. Incidental note is made of straightening of the usual cervical lordosis which can be seen with muscle spasm or be due to patient positioning. IMPRESSION: 1. Multilevel degenerative disc disease in the thoracic spine. 2. Straightening of the usual cervical lordosis which can be seen with muscle spasm or be due to patient positioning. Assessment & Plan Assessment & Plan (1) Myalgia: Code(s): M79.10 - Myalgia, unspecified site Category: Medical (2) Myofascial muscle pain: Code(s): M79.18 - Myalgia, other site Category: Medical (3) Cervical spondylosis: Code(s): M47.812 - Spondylosis without myelopathy or radiculopathy, cervical region Category: Medical (4) Lumbar spondylosis: Code(s): M47.816 - Spondylosis without myelopathy or radiculopathy, lumbar region Category: Medical (5) Osteoarthritis: Code(s): M19.90 - Unspecified osteoarthritis, unspecified site Category: Medical (6) Migraines: Code(s): G43.909 - Migraine, unspecified, not intractable, without status migrainosus Category: Medical Plan Britt is a very pleasant 43-year-old female who presented to the office today for follow-up chronic pain Will resend referral for chiropractor Referral placed for neurology to evaluate and manage for migraines Will trial amitriptyline 10 mg p.o. q.h.s.. All questions and concerns were answered, patient agrees with plan Follow up in 3 months, sooner if needed Orders: Referrals Neurology Referral G43.909 - Migraine, unspecified, not intractable, without status migrainosus Medications: New amitriptyline 10 mg PO BEDTIME 30 tabs 3RF Coding Level of Care Code Est Pt Level 4 (28792) Complex EM visit Add On G2211 Diagnoses Myalgia M79.10 Myofascial muscle pain M79.18 Cervical spondylosis M47.812 Lumbar spondylosis M47.816 Osteoarthritis M19.90 Migraines G43.909
== END 2023-12-04 14:43 | disposition home or self-care (01) ==
PROVIDERS: PCP Internal Medicine; Visit Provider Registered Nurse Emergency
DX: M79.10 Myalgia, unspecified site (principal); M79.18 Myalgia, other site; M47.812 Spondylosis without myelopathy or radiculopathy, cervical region; M47.816 Spondylosis without myelopathy or radiculopathy, lumbar region; M19.90 Unspecified osteoarthritis, unspecified site; G43.909 Migraine, unspecified, not intractable, without status migrainosus
CPT/HCPCS: 99214; G2211

== ENCOUNTER → 2023-12-04 12:50 | Outpatient (BNVA) | payer OTHER, SELFPAY | PROVIDERS: PCP Internal Medicine; Visit Provider Registered Nurse Emergency | DX: M79.18 Myalgia, other site (principal); M47.812 Spondylosis without myelopathy or radiculopathy, cervical region; M47.816 Spondylosis without myelopathy or radiculopathy, lumbar region; M19.90 Unspecified osteoarthritis, unspecified site; G43.909 Migraine, unspecified, not intractable, without status migrainosus | CPT/HCPCS: 99212 ==

== ENCOUNTER 2024-01-01 13:57 | Outpatient (AMB) | payer OTHER, SELFPAY ==
[2024-01-01 14:11] VITALS: BP 127/82; PULSE 80; BMI 48.4
--- NOTE | 2024-01-01 14:11 | MHC.OFFVIS ---
Vital Signs 01/01/24 14:11 Height 5 ft 6 in Weight 299 lb 13.259 oz BMI 48.4 BP 127/82 Blood Pressure Location Lt brachial Position Sitting Pulse 80 Intake Visit Reasons: F/u reschedule from 09/28 Intake Note: Britt returns to in office follow up of labs and IBS. CC: Patient reports getting headaches and bloated after eating some foods but she still can't pinpoint what exactly it is causing her symptoms. She also reports clear vaginal discharge and in her stools, and very itchy skin. Protection [employer] Required: No Accompanied by: Self / Same As Patient Allergies nirmatrelvir [From Paxlovid (EUA)] Allergy (Verified 01/01/24 14:32) Unknown ritonavir [From Paxlovid (EUA)] Allergy (Verified 01/01/24 14:32) Unknown adhesive Adverse Reaction (Verified 01/01/24 14:32) Rash Erythromycin Allergy (Uncoded 08/27/23 12:51) Rash Latex Allergy (Uncoded 08/27/23 12:51) Rash Medication List - Last Reconciled 01/01/24 by CHOCO Teran amitriptyline 10 mg PO BEDTIME cetirizine 10 mg PO DAILY CPAP (CPAP Machine/Device) As directed esomeprazole magnesium 40 mg PO DAILY ibuprofen 600 mg PO Q8H PRN levothyroxine (Synthroid) 112 mcg PO DAILY linaclotide (Linzess) 72 mcg PO QAM ondansetron 4 mg PO Q8H PRN polyethylene glycol 3350 (Miralax) 17 grams PO DAILY PRN 30 days semaglutide (weight loss) (Wegovy) mg subcut tizanidine 2 mg PO TID PRN wheat dextrin (Benefiber Clear Sugar Free(dextrin)) 1.5 grams PO BID HPI HPI F/u reschedule from 09/28: Details: Assessment & Plan (1) Erosive esophagitis: Code(s): K22.10 - Ulcer of esophagus without bleeding Category: Medical (2) Erosive gastritis: Code(s): K29.60 - Other gastritis without bleeding Category: Medical (3) Upper abdominal pain: Code(s): R10.10 - Upper abdominal pain, unspecified Category: Medical (4) Back pain: Code(s): M54.9 - Dorsalgia, unspecified Category: Medical (5) Irritable bowel syndrome with both constipation and diarrhea: Code(s): K58.2 - Mixed irritable bowel syndrome Category: Medical (6) GERD (gastroesophageal reflux disease): Comment: Barium swallow 06/2022 [facility] IMPRESSION Small sliding type 1 hiatal hernia. Code(s): K21.9 - Gastro-esophageal reflux disease without esophagitis Category: Medical (7) Edema: Code(s): R60.9 - Edema, unspecified Category: Medical (8) Rash: Code(s): R21 - Rash and other nonspecific skin eruption Category: Medical (9) Myalgia: Code(s): M79.10 - Myalgia, unspecified site Category: Medical (10) Thoracic radiculopathy due to degenerative joint disease of spine: Code(s): M47.24 - Other spondylosis with radiculopathy, thoracic region Category: Medical (11) Morbid obesity: Code(s): E66.01 - Morbid (severe) obesity due to excess calories Category: Medical Plan ? Spinal stimulator - she denies but she has a mesh for hernia repair Refer to pain mgmt. OA of thoracic spine, having shock like feeling inner abd. Generalized swelling with myalgias, arthralgias, rash comes an dgoes. Ordering inflamm tests etc. She thinks cantelope and pasts cause itching. GERD is better with nexium, still IBS but using Linzess when needed. Pain in skin and over entire body. GI sx are overall better. ROV 5 weeks. Orders: Orders C Reactive Protein 08/27/23 R60.9 - Edema, unspecified, R21 - Rash and other nonspecific skin eruption, M79.10 - Myalgia, unspecified site RICO Reflex Titer and Pattern 08/27/23 R60.9 - Edema, unspecified, R21 - Rash and other nonspecific skin eruption, M79.10 - Myalgia, unspecified site Rheumatoid Factor 08/27/23 R60.9 - Edema, unspecified, R21 - Rash and other nonspecific skin eruption, M79.10 - Myalgia, unspecified site Cyclic Citrullinated Peptide 08/27/23 R60.9 - Edema, unspecified, R21 - Rash and other nonspecific skin eruption, M79.10 - Myalgia, unspecified site Lyme IgG/IgM w/reflex to WB 08/27/23 R21 - Rash and other nonspecific skin eruption, M79.10 - Myalgia, unspecified site Liver Panel 08/27/23 R21 - Rash and other nonspecific skin eruption, E66.01 - Morbid (severe) obesity due to excess calories Erythrocyte Sedimentation Rate 08/27/23 R60.9 - Edema, unspecified, R21 - Rash and other nonspecific skin eruption, M79.10 - Myalgia, unspecified site B Type Natriuretic Peptide 08/27/23 R60.9 - Edema, unspecified, R21 - Rash and other nonspecific skin eruption, M79.10 - Myalgia, unspecified site Referrals Pain Management Referral M47.24 - Other spondylosis with radiculopathy, thoracic region LABS: Laboratory Tests 08/27/23 14:16 ESR 3 Total Bilirubin 0.5 Direct Bilirubin 0.2 AST 20 ALT 18 Alkaline Phosphatase 64 C-Reactive Protein 0.62 H B-Natriuretic Peptide 13 Rheumatoid Factor < 13.0 Cycl Citrul Peptide IgG <16 RICO Screen NEGATIVE Lyme Screen IgG & IgM <0.90 TODAY'S VISIT She went on a cruise with her family and she was concerned that she developed some CIC and then was passing a lot of mucus. She also recently started Wegovy recently, so this is probably causing some changes in her bowel habits. She is only at the 0.5 dose now and is titrating. She has not been using her LInzess 72mcg as much, but she may need it more as she titrates up her wegovy. She is looking into acupuncture for her aches and pains, the rheum work up I did was unrevealing. She had this tx on her cruise and she felt it was helpful. ROV ROV 6 mos. [facility] Medical History (Updated 01/01/24 @ 14:45 by CHOCO Teran) Microscopic hematuria UTI (urinary tract infection) Rash Edema Upper abdominal pain Back pain Throat irritation Palpitations Hypothyroid Nausea and vomiting Vaginal marian Sleep apnea GERD (gastroesophageal reflux disease) Hypothyroid History of endometrial biopsy Surgical History H/O colonoscopy H/O hernia repair History of tubal ligation History of section Family History Father No problems noted. Mother No problems noted. Social History Alcohol intake: current Alcohol intake frequency: holidays/special occasions only Patient Tobacco Use Status: Never used Tobacco Review of Systems Const Denies fatigue, Denies fever(s), Denies night sweats, Denies poor appetite and Reports weight loss Eyes Details: glasses Reports requires corrective lenses ENT Reports Normal hearing present, Denies dental pain, Denies dysphagia, Denies hearing loss, Denies mouth pain, Denies odynophagia, Denies throat swelling, Denies tongue swelling and Reports other (Dentition adequate) Card Reports no additional complaints Resp Reports no additional complaints GI Details: Denies abdominal pain, Denies melena, Denies bloating, Denies hematochezia, Reports constipation, Denies GI cramping, Denies dysphagia, Denies excessive flatus, Denies early satiety, Reports heartburn, Denies diarrhea, Reports nausea, Denies odynophagia, Denies vomiting and Denies hematemesis Skin/Breast Denies pruritus, Denies lesions, Denies rash and Denies jaundice Neuro Reports Normal hearing present and Denies Abnormal speech present Endo Denies fatigue Aller/Immun Denies throat swelling and Denies tongue swelling Physical Exam Vital Signs: Last Vital Signs Pulse 80 01/01/24 14:11 BP 127/82 01/01/24 14:11 BMI result Body Mass Index 48.4 Const General: cooperative, no acute distress, well developed and well groomed Nutritional Appearance: well nourished and obese morbidly obese Orientation/consciousness: oriented to person, oriented to place and oriented to time Limitations: No language barrier HEENT Head: Yes normocephalic and Yes atraumatic Eyes General: appearance normal, both eyes and all related structures Pupils: Equal, round and reactive pupils present Neck Neck: Yes normal visual inspection and Yes no lymphadenopathy Thyroid: Thyroid normal Resp Effort & Inspection: normal respiratory effort and able to speak in complete sentences Auscultation: clear to auscultation bilaterally Cardio Rate: regular rate Rhythm: regular rhythm Heart sounds: Normal, physiologic split S2 sound present Peripheral pulses: radial pulses present and posterior tibial pulses present GI Inspection: No distended, Yes Abdominal panniculus present and Yes obesity Palpation (GI): Soft to palpation, nontender, no guarding, not rigid and No hepatosplenomegaly present Percussion: Yes normal to percussion Auscultation: normal bowel sounds Rectal Exam - Female: deferred Skin General skin exam: no rashes or lesions noted, turgor normal, skin not dry, no jaundice, No spider nevi and no striae Rashes: no rashes Nails: normal Neuro General: oriented to person, oriented to place and oriented to time Cranial nerves: Yes Equal, round and reactive pupils present and Yes Normal hearing present Speech: No Abnormal speech present Extrem General: Yes normal to inspection, No clubbing, No cyanosis and No edema Psych Appearance: grossly normal and well kempt Mental Status: mental status grossly normal Speech and movement: Normal speech and movement present Affect: normal affect Attitude: cooperative Thought process: Normal thought process present and not confabulating Thought content: Normal thought content present Insight: Fair insight present (Psych) Judgement: Fair judgement present (Psych) Assessment & Plan Assessment & Plan (1) Erosive gastritis: Code(s): K29.60 - Other gastritis without bleeding Category: Medical (2) Erosive esophagitis: Code(s): K22.10 - Ulcer of esophagus without bleeding Category: Medical (3) Irritable bowel syndrome with both constipation and diarrhea: Code(s): K58.2 - Mixed irritable bowel syndrome Category: Medical Plan She went on a cruise with her family and she was concerned that she developed some CIC and then was passing a lot of mucus. She also recently started Wegovy recently, so this is probably causing some changes in her bowel habits. She is only at the 0.5 dose now and is titrating. She has not been using her LInzess 72mcg as much, but she may need it more as she titrates up her wegovy. On her generic Nexium. She is looking into acupuncture for her aches and pains, the rheum work up I did was unrevealing. She had this tx on her cruise and she felt it was helpful. ROV ROV 6 mos. Coding Level of Care Code Est Pt Level 3 (52660) Diagnoses Erosive gastritis K29.60 Erosive esophagitis K22.10 Irritable bowel syndrome with both constipation and diarrhea K58.2
== END 2024-01-01 15:24 | disposition home or self-care (01) ==
PROVIDERS: PCP Internal Medicine; Visit Provider Nurse Practitioner
DX: K29.60 Other gastritis without bleeding (principal); K22.10 Ulcer of esophagus without bleeding; K58.2 Mixed irritable bowel syndrome
CPT/HCPCS: 99213

== ENCOUNTER → 2024-01-01 13:57 | Outpatient (BNVA) | payer OTHER, SELFPAY | PROVIDERS: PCP Internal Medicine; Visit Provider Nurse Practitioner | DX: K58.2 Mixed irritable bowel syndrome (principal); K21.9 Gastro-esophageal reflux disease without esophagitis; K29.60 Other gastritis without bleeding; K22.10 Ulcer of esophagus without bleeding; N89.8 Other specified noninflammatory disorders of vagina; R60.9 Edema, unspecified; R21 Rash and other nonspecific skin eruption; E66.01 Morbid (severe) obesity due to excess calories; Z68.42 Body mass index [BMI] 45.0-49.9, adult | CPT/HCPCS: 99212 ==

== ENCOUNTER 2024-02-26 13:32 | Outpatient (AMB) | payer OTHER, SELFPAY ==
[2024-02-26 13:39] VITALS: BP 116/58; PULSE 81; RESP 15; O2SAT 98; BMI 47.6
--- NOTE | 2024-02-26 13:39 | MHC.OFFVIS ---
Vital Signs 02/26/24 13:39 Height 5 ft 6 in Weight 295 lb BMI 47.6 BP 116/58 L Blood Pressure Location Lt brachial Position Sitting Respiration 15 Pulse 81 Pulse Source Pulse Oximeter Pulse Oximetry (%) 98 Oxygen Delivery Method Room Air Intake Visit Reasons: FU Allergies nirmatrelvir [From Paxlovid (EUA)] Allergy (Verified 02/26/24 13:40) Unknown ritonavir [From Paxlovid (EUA)] Allergy (Verified 02/26/24 13:40) Unknown adhesive Adverse Reaction (Verified 02/26/24 13:40) Rash Erythromycin Allergy (Uncoded 02/26/24 13:40) Rash Latex Allergy (Uncoded 02/26/24 13:40) Rash Medication List - Last Reconciled 02/26/24 by Filomena Ayala LPN cetirizine 10 mg PO DAILY CPAP (CPAP Machine/Device) As directed esomeprazole magnesium 40 mg PO DAILY ibuprofen 600 mg PO Q8H PRN levothyroxine (Synthroid) 112 mcg PO DAILY linaclotide (Linzess) 72 mcg PO QAM polyethylene glycol 3350 (Miralax) 17 grams PO DAILY PRN 30 days semaglutide (weight loss) (Wegovy) 1 mg subcut HPI Comments Details: Patient presents back to the office today for follow-up Continues with Wegovy, states this has significantly improved her inflammation Tried acupuncture while recent cruise which also provided her some relief. She would like a referral but as of today she does not know if her insurance covers it or a covered provider Requesting referral to podiatry though she is unsure who is covered by her insurance. She has a history of bone spurs on her heels that improved with cortisone injections. She would like to repeat these when she finds a dance costume designer. She has not been taking the amitriptyline as she would like how it made her feel Continues to endorse diffuse muscle spasms, states she did not fill the tizanidine that was prescribed at last visit. She would be willing to try them at this time. Prior: Britt presents back to the office today for follow-up chronic pain Since last visit she has been taking Wegovy for weight loss. She has noticed significant improvement in her diffuse inflammation. If this is drastically improved her pain. Pain today is rated as a 4/10 She has not been call to schedule at the chiropractor History of migraines not currently under care of neurologist. Prescribed tizanidine at last visit, she has not taken any this medication as her pain is improved after the Wegovy. Intake visit: Britt is a very pleasant 43-year-old female who presents to the office today for evaluation and management of her chronic lower back pain Patient reports that she has been suffering with this pain for twenty years. Denies injury, fall or accident. Attributes her pain to being very athletic, dancing and playing many sports as a child. Pain upper, middle and lower back. Pain today rated as a 4/10, constant and worse during the day. She has attempted physical therapy multiple times, most recently was a couple years ago. States any time she is tried physical therapy she has not found relief and developed pains in other areas Did chiropractor 3 years ago, found relief with this but states it was costing her 60 dollars the session which she was unable to afford She has found much relief with massage, is unsure if insurance currently covers it Patient underwent injections at [facility] many years ago, states that she passed out both times Currently taking ibuprofen 800 mg with some relief. In terms of muscle damage condition is described as aching, hot, burning, dull, numb Pain is negatively impacting patient's enjoyment of life, general activity, mood, normal work, recreational activities, sleep and walking She has never been evaluated by Rheumatology for her arthritis and polyarthralgias. Recent x-rays were completed, results as per below [facility] Medical History (Updated 01/01/24 @ 14:45 by CHOCO Teran) Microscopic hematuria UTI (urinary tract infection) Rash Edema Upper abdominal pain Back pain Throat irritation Palpitations Hypothyroid Nausea and vomiting Vaginal marian Sleep apnea GERD (gastroesophageal reflux disease) Hypothyroid History of endometrial biopsy Surgical History H/O colonoscopy H/O hernia repair History of tubal ligation History of section Family History Father No problems noted. Mother No problems noted. Social History Alcohol intake: current Alcohol intake frequency: holidays/special occasions only Patient Tobacco Use Status: Never used Tobacco Review of Systems Const All systems reviewed & are unremarkable except as noted in HPI and below Physical Exam Vital Signs: Last Vital Signs Pulse 81 02/26/24 13:39 Resp 15 02/26/24 13:39 BP 116/58 L 02/26/24 13:39 Pulse Ox 98 02/26/24 13:39 Oxygen Delivery Method Room Air 02/26/24 13:39 BMI result Body Mass Index 47.6 General: awake, alert, oriented. Answers questions appropriately. Fully engaged in examination. Skin: warm, dry, intact HEENT: Normocephalic. Hearing intact. Cardiac: External chest normal in appearance. Respiratory: No cough, audible wheezing or stridor. Abdomen: without gross distension. MS: No obvious swelling or deformities. Able to stand on bilateral tiptoes and bilateral heels.? Able to transition from sit to stand unassisted. Neurological: Oriented to person, place, time and situation. Thought process intact. No gait abnormalities appreciated. Psychiatric: Appropriate mood and affect. Good judgment and insight. Results Reviewed Results Reviewed: 07/30/23 XR/XR lumbar spine 2-3V FINDINGS: There is a transitional thoracolumbar vertebral body at L1 which contains a small riblet on the right and a normal transverse process on the left. The height of the lumbar vertebral bodies is well-maintained. There is no disc space narrowing. There is multilevel degenerative facet joint disease, marked at L4-L5 and L5-S1. There is small anterior marginal osteophytes at all lumbar levels. There is no spondylolisthesis. Multiple metallic coils project over the lower abdomen/upper pelvis. IMPRESSION: XR/XR thoracic spine 2V Multilevel degenerative facet joint disease, marked at L4-L5 and L5-S1. FINDINGS: The vertebral alignment is normal. No intrinsic bony abnormality. There is multilevel degenerative disc disease. There is marginal osteophyte formation. The posterior elements are normal. No fracture or subluxation. The surrounding prevertebral soft tissues are unremarkable. Incidental note is made of straightening of the usual cervical lordosis which can be seen with muscle spasm or be due to patient positioning. IMPRESSION: 1. Multilevel degenerative disc disease in the thoracic spine. 2. Straightening of the usual cervical lordosis which can be seen with muscle spasm or be due to patient positioning. Assessment & Plan Assessment & Plan (1) Myalgia: Code(s): M79.10 - Myalgia, unspecified site Category: Medical (2) Myofascial muscle pain: Code(s): M79.18 - Myalgia, other site Category: Medical (3) Cervical spondylosis: Code(s): M47.812 - Spondylosis without myelopathy or radiculopathy, cervical region Category: Medical (4) Lumbar spondylosis: Code(s): M47.816 - Spondylosis without myelopathy or radiculopathy, lumbar region Category: Medical (5) Osteoarthritis: Code(s): M19.90 - Unspecified osteoarthritis, unspecified site Category: Medical (6) Migraines: Code(s): G43.909 - Migraine, unspecified, not intractable, without status migrainosus Category: Medical Plan Britt is a very pleasant 43-year-old female who presented to the office today for follow-up chronic pain Patient will call the office with covered acupuncture provider and dance costume designer if she needs referral sent. Discontinue amitriptyline as patient does not like how it makes her feel. Denies side effects, states it ?shut her brain off? and made her sleepy which she did not like Tizanidine 2 mg p.o. 3 times daily as needed All questions and concerns were answered, patient agrees with plan Follow up in 6 months, sooner if needed Medications: Refilled tizanidine No driving while taking this medication. May cause drowsiness. Do not take with alcohol or other [employer] Depressants. 2 mg PO TID PRN 90 tabs 1RF muscle spasticity Coding Level of Care Code Est Pt Level 3 (78683) Complex EM visit Add On G2211 Diagnoses Myalgia M79.10 Myofascial muscle pain M79.18 Cervical spondylosis M47.812 Lumbar spondylosis M47.816 Osteoarthritis M19.90 Migraines G43.909
== END 2024-02-26 14:08 | disposition home or self-care (01) ==
PROVIDERS: PCP Internal Medicine; Visit Provider Registered Nurse Emergency
DX: M79.10 Myalgia, unspecified site (principal); M79.18 Myalgia, other site; M47.812 Spondylosis without myelopathy or radiculopathy, cervical region; M47.816 Spondylosis without myelopathy or radiculopathy, lumbar region; M19.90 Unspecified osteoarthritis, unspecified site; G43.909 Migraine, unspecified, not intractable, without status migrainosus
CPT/HCPCS: 99213; G2211

== ENCOUNTER → 2024-02-26 13:32 | Outpatient (BNVA) | payer OTHER, SELFPAY | PROVIDERS: PCP Internal Medicine; Visit Provider Registered Nurse Emergency | DX: M79.10 Myalgia, unspecified site (principal); M79.18 Myalgia, other site; M47.812 Spondylosis without myelopathy or radiculopathy, cervical region; M47.816 Spondylosis without myelopathy or radiculopathy, lumbar region; M19.90 Unspecified osteoarthritis, unspecified site; G43.909 Migraine, unspecified, not intractable, without status migrainosus | CPT/HCPCS: 99212 ==